=== PATIENT | female | born 1975 | race Caucasian/White ===

== ENCOUNTER → 2018-02-11 10:13 | Outpatient (CLI) | payer OTHER, SELFPAY ==
--- NOTE | 2018-02-11 10:15 | MM_ITS ---
MM Dig screening mamm BI w/CAD CAD Screening COMPARISON: None, this is baseline INDICATION: There is no personal or family history of breast cancer TECHNIQUE: Standard CC and MLO images were obtained. R2 CAD reviewed. FINDINGS: Moderate diffuse fiber glandular densities are seen in the central portions of both breasts. There are several benign-appearing microcalcifications inner quadrant right breast. There is no suspicious lesion and there are no suspicious microcalcifications. IMPRESSION: Fibrofatty parenchyma no suspicious lesion seen BI-RADS Category: 2 Benign Finding(s) RECOMMENDED FOLLOW-UP: 1YR - 1 YEAR FOLLOW-UP (A letter has been sent to the patient regarding results of the study.)
== END ==
PROVIDERS: Family Provider Internal Medicine Adolescent Medicine; PCP Internal Medicine Adolescent Medicine; Visit Provider Nurse Practitioner Obstetrics & Gynecology
DX: Z12.31 Encounter for screening mammogram for malignant neoplasm of breast (principal)
CPT/HCPCS: 77067

== ENCOUNTER → 2019-07-14 10:14 | Outpatient (CLI) | payer OTHER, SELFPAY ==
--- NOTE | 2019-07-14 10:15 | MM_ITS ---
PROCEDURE: MM DIG SCREENING MAMM BI W/CAD CLINICAL INDICATION: Routine Mammgram Screening There is a history of breast cancer in patient's mother diagnosed after menopause. COMPARISON: [facility] MM Dig screening mamm BI w/CAD from 02/11/2018 TECHNIQUE: Standard CC and MLO images were obtained. R2 CAD reviewed. FINDINGS: There is a diffusely dense and heterogenic parenchymal pattern somewhat lessening the sensitivity of mammography. There is a stable collection of benign-appearing microcalcifications inner quadrant right breast. There is no new or suspicious lesion in either breast and no suspicious microcalcifications. IMPRESSION: Moderately dense parenchymal pattern with no suspicious lesions seen BI-RAD Category: 2 Benign Finding(s) FOLLOW-UP: 1YR 1 Year Follow-up (A letter has been sent to the patient regarding results of the study.) Dictated by: Dr. Tom Godoy MD 07/16/2019 14:[address] Tom Godoy MD in [place] 07/16/2019 14:29
== END ==
PROVIDERS: PCP Internal Medicine Adolescent Medicine; Visit Provider Nurse Practitioner Obstetrics & Gynecology
DX: Z12.31 Encounter for screening mammogram for malignant neoplasm of breast (principal)
CPT/HCPCS: 77067

== ENCOUNTER → 2020-07-21 12:45 | Outpatient (CLI) | payer OTHER, SELFPAY ==
--- NOTE | 2020-07-21 12:45 | MM_ITS ---
PROCEDURE: MM DIG SCREENING MAMM BI W/CAD Digital Breast Tomosynthesis Included CLINICAL INDICATION: screening xmg COMPARISON: MG [facility] MM Dig screening mamm BI w/CAD from 02/11/2018 MG MM DIG SCREENING MAMM BI W/CAD from 07/14/2019 TECHNIQUE: Standard CC and MLO images and 3D Tomosynthesis was obtained. R2 CAD reviewed. FINDINGS: There is a diffusely dense and somewhat heterogenic parenchymal pattern. There is a collection of microcalcifications inner quadrant right breast at approximately the 3 o'clock position many of which have been seen on the previous 2 mammograms but there appears to be a slight increase in number of the microcalcifications on the current study. They have somewhat of indeterminate appearance but recommend the patient return for spot compression magnification views of the area circled study and in addition ultrasound should be performed as well. IMPRESSION: Moderately dense parenchymal pattern with possible change in microcalcifications right breast BI-RAD Category: 0 Need Additional Imaging Evaluation FOLLOW-UP: IMM Immediate Follow-up Recommended (A letter has been sent to the patient regarding results of the study.) Dictated by: Dr. Tom Godoy MD 07/28/2020 18:37 Dr. Tom Godoy MD in [place] 07/28/2020 18:37
== END ==
PROVIDERS: PCP Internal Medicine Adolescent Medicine; Visit Provider Nurse Practitioner Obstetrics & Gynecology
DX: Z12.31 Encounter for screening mammogram for malignant neoplasm of breast (principal)
CPT/HCPCS: 77063; 77067

== ENCOUNTER → 2020-08-16 14:23 | Outpatient (CLI) | payer OTHER, SELFPAY ==
--- NOTE | 2020-08-16 14:23 | MM_ITS ---
PROCEDURE: MM DIG MAMM DX UNILAT RT CAD Digital Breast Tomosynthesis Included CLINICAL INDICATION: abnormal xmg COMPARISON: MG [facility] MM Dig screening mamm BI w/CAD from 02/11/2018 MG MM DIG SCREENING MAMM BI W/CAD from 07/14/2019 MG MM DIG SCREENING MAMM BI W/CAD from 07/21/2020 US US BREAST RT COMPLETE from 08/16/2020 TECHNIQUE: Standard CC and MLO images and 3D Tomosynthesis was obtained. R2 CAD reviewed. FINDINGS: Significant a cardenas views better demonstrate a collection of somewhat amorphous appearing microcalcifications just deep to and slightly medial to the nipple with an associated irregular density. Ultrasound performed the same date showed a couple small cyst cystic structures at this location. IMPRESSION: Amorphous collection of microcalcifications with associated irregular density and even though the ultrasound study show no suspicious findings I believe biopsy is indicated. BI-RAD Category: 4 Suspicious Abnormality - Biopsy Considered FOLLOW-UP: BIO Biopsy Recommended (A letter has been sent to the patient regarding results of the study.) Dictated by: Dr. Tom Godoy MD 08/21/2020 19:37 Dr. Tom Godoy MD in [place] 08/21/2020 19:37
--- NOTE | 2020-08-16 14:23 | US_ITS ---
PROCEDURE: US BREAST RT COMPLETE CLINICAL INDICATION: abnormal xmg COMPARISON: No exams were available for comparison FINDINGS: There is a tiny benign-appearing cystic lesion at the 1 o'clock position near the nipple measuring 0.5 cm in length. There is a complex cystic structure with internal septations versus a collection of small cysts at the to 3 o'clock position near the nipple. There is no suspicious solid lesion. There are a couple of normal appearing nodes in the axilla. IMPRESSION: No definite suspicious findings on the ultrasound exam in the area of clinical interest but in view of the findings on the problem solving spot compression magnification views biopsy is recommended as described in the mammogram report Dictated by: Dr. Tom Godoy MD 08/21/2020 19:42 Dr. Tom Goody MD in [place] 08/21/2020 19:42
== END ==
PROVIDERS: PCP Internal Medicine Adolescent Medicine; Visit Provider Nurse Practitioner Obstetrics & Gynecology
DX: R92.8 Other abnormal and inconclusive findings on diagnostic imaging of breast (principal)
CPT/HCPCS: 76641; 77061; 77065; G0279

== ENCOUNTER → 2020-09-07 09:20 | Outpatient (CLI) | payer OTHER, SELFPAY ==
--- NOTE | 2020-09-07 09:21 | MM_ITS ---
PROCEDURE: MM STEREOTACTIC LOC RT CLINICAL INDICATION: Abnormal Mammogram/US Abnormal mammogram with right breast calcifications. TECHNIQUE: Following obtaining informed consent and procedure, the patient placed in the unit and the calcifications in breast of interest were using standard stereotactic technique. Local anesthesia was obtained with 1 percent buffered lidocaine and deeper anesthesia with 1 percent buffered lidocaine mixed with epinephrine. Skin mau was performed and mammotome needle inserted. Multiple mammotome biopsies were obtained. Specimen radiograph demonstrated calcifications of interest. A biopsy clip was then placed. The patient tolerated the procedure well without evidence of immediate complication. Post biopsy mammogram/clip placement right side biopsy clip is in satisfactory position in the medial aspect of the right breast with post biopsy changes with interval removal of the calcifications of interest. Pathology: Ductal carcinoma in situ. Microcalcifications identified. IMPRESSION: 1. Successful stereotactic vacuum-assisted core biopsy of the breast calcifications. 2. Successful placement of a titanium metal MicroMark. 3. Pathology is positive for ductal carcinoma in situ.. 4. No noted complications. SPECIMEN RADIOGRAPH: The mammographically evident calcifications from the prior study are currently evident within the Adisha dish and within the specimens obtained during mammotome procedure. This is considered an adequate specimen and the procedure was terminated. IMPRESSION: Successful removal of described breast calcifications. BREAST right MAMMOGRAM: Compared to the prior study, the previously noted calcification have been removed. A small MicroMark clip was inserted into the region of the calcifications. There is evidence of soft tissue changes in the region of the biopsy was soft tissue gas and edema. 5. Adequate placement of the MicroMark clip postbiopsy. 6. Postbiopsy changes within the right breast. Dictated by: Broderick Carrizales MD 09/16/2020 14:12 Broderick Carrizales MD in [place] 09/16/2020 14:12
== END ==
PROVIDERS: PCP Internal Medicine Adolescent Medicine; Visit Provider Nurse Practitioner Obstetrics & Gynecology
DX: R92.8 Other abnormal and inconclusive findings on diagnostic imaging of breast (principal)
CPT/HCPCS: 19081; 76098; 77065

== ENCOUNTER → 2020-12-29 14:15 | Outpatient (CLI) | payer OTHER, SELFPAY | PROVIDERS: Visit Provider Physician Assistant | DX: N39.0 Urinary tract infection, site not specified (principal) | CPT/HCPCS: 87086 ==

== ENCOUNTER → 2021-03-28 13:53 | Outpatient (CLI) | payer OTHER, SELFPAY | PROVIDERS: Visit Provider Nurse Practitioner Family | DX: N39.0 Urinary tract infection, site not specified (principal) | CPT/HCPCS: 87086; 87088; 87186 ==

== ENCOUNTER → 2021-05-15 14:19 | Outpatient (CLI) | payer OTHER, SELFPAY ==
[2021-05-15 14:25] LABS: Adenovirus F 40/41, stool Not Detected (NotDetected); Astrovirus Not Detected (NotDetected); Campylobacter Not Detected (NotDetected); Clostridium Difficile A/B, PCR Not Detected (NotDetected); Cryptosporidium Not Detected (NotDetected); Cyclospora Cayetanesis Not Detected (NotDetected); Entamoeba histolytica Not Detected (NotDetected); Enteroaggregative E coli Not Detected (NotDetected); Enteropathogenic E coli Not Detected (NotDetected); Enterotoxigenic E coli Not Detected (NotDetected); Giardia lamblia Not Detected (NotDetected); Norovirus Not Detected (NotDetected); Plesimonas Shigalloides, PCR Not Detected (NotDetected); Rotavirus A Not Detected (NotDetected); Salmonella, PCR Not Detected (NotDetected); Sapovirus Not Detected (NotDetected); Shiga-like toxin E coli Not Detected (NotDetected); Shigella Enterovasive E coli Not Detected (NotDetected); Vibrio Cholerae Not Detected (NotDetected); Vibrio, PCR Not Detected (NotDetected); Yersinia Entercolitica, PCR Not Detected (NotDetected)
== END ==
PROVIDERS: Visit Provider Internal Medicine Adolescent Medicine
DX: R19.7 Diarrhea, unspecified (principal)
CPT/HCPCS: 87507

== ENCOUNTER → 2021-05-22 13:22 | Outpatient (CLI) | payer OTHER, SELFPAY ==
[2021-05-22 13:58] LABS: Basophils # 0.1 K/mm3 (0-0.2); Basophils % 0.4 % (0.1-2.0); Eosinophils # 4.6 K/mm3 (0.0-0.4); Eosinophils % 32.5 % (0.1-12.0); Hematocrit 42.9 % (37.0-47.0); Hemoglobin 13.8 g/dL (12.2-16.2); Lymphocytes # 3.2 K/mm3 (0.7-4.5); Lymphocytes % 22.4 % (10-50); Mean Corpuscular HGB Conc 32.2 g/dL (31.8-35.4); Mean Corpuscular Hemoglobin 28.3 pg (27.0-31.2); Monocytes # 0.3 K/mm3 (0.1-1.0); Monocytes % 1.9 % (1.7-9.3); Neutrophils # 6.1 K/mm3 (1.8-7.8); Neutrophils % 42.9 % (37.0-80.0); Platelet Count 327 K/mm3 (142-424); Red Blood Count 4.87 M/mm3 (4.20-5.40); Red Cell Distribution Width 12.8 % (11.5-17.5); White Blood Count 14.2 K/mm3 (4.8-10.8)
[2021-05-22 15:01] LABS: Alanine Aminotransferase 22 U/L (12-78); Albumin Level 4.6 g/dl (3.5-5.0); Albumin/Globulin Ratio 1.7 (1.1-1.8); Alkaline Phosphatase 67 U/L (38-126); Anion Gap 17.1 mEq/L (5-15); Aspartate Amino Transferase 31 U/L (14-36); Bilirubin,Total 0.4 mg/dl (0.2-1.3); Blood Urea Nitrogen 11 mg/dl (7-17); Calcium 9.6 mg/dl (8.4-10.2); Carbon Dioxide 22 mmol/L (22.0-30.0); Chloride 108 mmol/L (98-107); Estimated Glomerular Filt Rate 90 ml/min (>60); GFR (African American) 109 ML/MIN (>60); Globulin 2.7 g/dL (1.3-3.2); Glucose 119 mg/dl (74-100); Lipase 83 U/L (23-300); Potassium 3.1 mmoL/L (3.5-5.1); Sodium 144 mmol/L (136-145); Total Protein,Serum 7.3 g/dl (6.3-8.2)
[2021-05-22 15:07] LABS: C-Reactive Protein 7.3 mg/L (0-4)
[2021-05-24 15:33] LABS: Tissue Transglutaminase IgA Ab <2 U/mL (0-3); Tissue Transglutaminase IgG Ab <2 U/mL (0-5)
[2021-05-24 15:33] LABS: Calprotectin, Fecal 73 ug/g (0-120)
[2021-05-25 16:30] LABS: Lactoferrin, Fecal, Quant. <1.00 ug/mL(g) (0.00-7.24)
== END ==
PROVIDERS: Visit Provider Internal Medicine Adolescent Medicine
DX: R19.7 Diarrhea, unspecified (principal)
CPT/HCPCS: 36415; 80053; 83516; 83630; 83690; 83993; 85025; 86140; 87177

== ENCOUNTER → 2021-05-31 10:08 | Outpatient (CLI) | payer OTHER, SELFPAY ==
--- NOTE | 2021-05-31 10:11 | US_ITS ---
PROCEDURE: US ABDOMEN LIMITED CLINICAL INDICATION: DIARRHEA OF PRESUMED INFECTIOUS ORRGIN COMPARISON: No exams were available for comparison FINDINGS: PANCREAS: The body and head of the pancreas has an unremarkable appearance. The tail the pancreas is not well delineated due to overlying bowel gas. LIVER: No focal liver lesions demonstrated. Homogeneous echogenicity. No intrahepatic biliary ductal dilatation evident. There is appropriate direction of blood flow within a non dilated portal vein RIGHT KIDNEY: Unremarkable. Normal size and echogenicity. No hydronephrosis GALLBLADDER: Gallbladder wall upper limits of normal at 3 mm. No gallstones apparent. No pericholecystic fluid. IMPRESSION: Minimal nonspecific prominence of the gallbladder wall otherwise negative gallbladder ultrasound Dictated by: Broderick Carrizales MD 05/31/2021 11:48 Broderick Carrizales MD in [place] 05/31/2021 11:48
== END ==
PROVIDERS: PCP Physician Assistant; Visit Provider Internal Medicine Adolescent Medicine
DX: R19.7 Diarrhea, unspecified (principal)
CPT/HCPCS: 76705

== ENCOUNTER → 2021-06-21 11:23 | Outpatient (CLI) | payer OTHER, SELFPAY | PROVIDERS: Visit Provider Internal Medicine Gastroenterology | DX: Z01.812 Encounter for preprocedural laboratory examination (principal); Z20.822 Contact with and (suspected) exposure to COVID-19; Z12.11 Encounter for screening for malignant neoplasm of colon | CPT/HCPCS: U0003 ==

== ENCOUNTER 2021-06-23 08:23 | Day surgery (SDC) | payer OTHER, SELFPAY ==
[2021-06-15 15:32] VITALS: BMI 25.0
[2021-06-23] VITALS (8 sets, daily range): BP systolic 84–133; BP diastolic 43–89; PULSE 63–79; RESP 16–18; TEMP 36.1–37.7; O2SAT 96–100
--- NOTE | 2021-06-23 09:03 | HMH.ANESCL ---
[facility] Anesthesia Checklist - Patient Identification Patient Identification: Arm Band - Structural Data Admitted From: Home Planned Operative Procedure/s: Colonoscopy Consent for Planned Operative Procedure(s) Verified: Yes - NPO Status Verified Time NPO: 00:00 - Additional verifications Anesthesia Reactions: No Hx Blood Transfusions: No Blood Transfusion Reaction: No - Airway Assessment C-Spine Mobility Assessed: Yes TMJ Mobility Assessed: Yes Dentition: Good Dentition - Neurological Assessment Level of Consciousness: Awake Hx Seizures: No Numbness or tingling in extremities: No - Anesthesia Plan Anesthesia Risk discussed: Yes Anesthesia Plan: Verified ASA Class: II Anesthesia Type: MAC [facility] History I have reviewed the patient's past medical history: Yes Medical History: Reports:: Cancer (right breast), Hyperlipidemia, Migraine, Urinary Tract Infection Denies:: Anxiety, Depression, Diabetes Mellitus Type 1, Diabetes Mellitus Type 2, Hypertension, Internal Pacemaker, MRSA, Seizures *Have you ever received a pneumonia vaccine?: No *Have you received a flu vaccine this season?: Yes Other Medical History: Reports: Hypothyroidism. Denies: Blood Transfusion Reaction Anesthesia experience/problems:: None Laterality Cases: Right: Lumpectomy, Bilateral: Tonsillectomy Other Surgeries: Yes: No Previous Surgery, . No: Pacemaker Amputation: No Fractures: No - *Social History Last grade of school completed: Some college Smoking Status: Never smoker Alcohol Intake: never Alcohol Intake Frequency:: holidays/special occasions only Substance Use Type: denies use *Occupational Status:: employed Housing: house Household Members: spouse *Travel in the last 8 weeks: None - Psychiatric History Pschychiatric History:: Denies:: Anxiety, Depression Family Hx:: Cancer, Diabetes, Heart Attack, Thyroid Disorder, Hypertension, Hyperlipidemia
[2021-06-23 09:15] LABS: HCG Qualitative, Serum Negative (Negative)
--- NOTE | 2021-06-23 10:03 | HMH.PROC ---
[facility] Procedure Note Procedure Note:: Colonoscopy Procedure Report: Colonoscopy Endoscopist: Hesham Engel II, MD Referring physician: Norris Jimenez MD Date of Procedure: June 23, 2021 Equipment: Olympus 190 variable stiffness pediatric colonoscope Sedation: MAC sedation Indication: Mrs. Smith is a 45-year-old female with diarrhea for approximately 4 to 6 weeks. She had some marked gassiness and postmeal bloating. She had postprandial epigastric and left lower quadrant abdominal discomfort. She had lost 9 to 10 pounds. Her bowel movements were watery rather than loose. She was taking Digestive Advantage probiotic. All of her labs were normal. Her fecal calprotectin and lactoferrin were normal. She had normal celiac serologies. She had been on a moderate amount of yogurt. She had seen me in the office on June 01 and I had recommended stopping the probiotic and yogurt. I also recommend stopping nitrofurantoin. She initiated dietary measures. She did not obtain Xifaxan (cost prohibitive) and did not do CAT scan because she markedly improved. She has had no diarrhea for more than a week now. Procedure: Prior to the procedure, a history and physical exam was performed, and patient's medications and allergies were reviewed. The risks, benefits and alternatives of the sedation and procedure were discussed with the patient. All questions were answered and informed consent was obtained. The patient was brought to the procedure room. Patient identification and proposed procedure were verified by the physician and the nurse. The patient was placed in a left lateral decubitus position and the scope was passed under direct vision. Throughout the procedure, the patient's blood pressure, pulse, and oxygen saturations were monitored continuously. The colonoscopy was accomplished without difficulty. The patient tolerated the procedure well. Findings: On digital rectal examination there was normal rectal tone. There were no external hemorrhoids. The colonoscope was introduced through the anal canal to the rectum and advanced to the cecum. The ileocecal valve and appendiceal orifice were identified. The scope was advanced a short distance into the ileum which appeared grossly normal. The scope was then withdrawn into the colon. The cecum, ascending, transverse, descending, sigmoid and rectum were grossly normal. There were no mucosal abnormalities identified. Upon retroflexion within the rectum there were grade 1 internal hemorrhoids.The preparation was excellent throughout with [place] Preparation Score of 9. The cecal time was 12 minutes. Impression: 1. Normal colonoscopy with intubation of the terminal ileum Plan: The patient will not require surveillance colonoscopy again for 10 years. The patient has had complete resolution of her diarrhea and digestive difficulties.
== END 2021-06-23 11:10 | disposition home or self-care (01) ==
LOC: OUTP 08:25
PROVIDERS: PCP Internal Medicine Adolescent Medicine; Visit Provider Internal Medicine Gastroenterology
PROC: 0DJD8ZZ Inspection of Lower Intestinal Tract, Via Natural or Artificial Opening Endoscopic (ICD-10-PCS; CPT 45378; principal; 2021-06-23 09:30)
DX: R19.7 Diarrhea, unspecified (principal); R14.0 Abdominal distension (gaseous); K64.0 First degree hemorrhoids; R10.32 Left lower quadrant pain; E78.5 Hyperlipidemia, unspecified; G43.909 Migraine, unspecified, not intractable, without status migrainosus; E03.9 Hypothyroidism, unspecified; Z85.3 Personal history of malignant neoplasm of breast; Z87.440 Personal history of urinary (tract) infections
CPT/HCPCS: 45378; 84703

== ENCOUNTER → 2021-07-06 21:16 | Outpatient (CLI) | payer OTHER, SELFPAY | PROVIDERS: Visit Provider Physician Assistant | DX: N39.0 Urinary tract infection, site not specified (principal); E03.9 Hypothyroidism, unspecified; E78.1 Pure hyperglyceridemia | CPT/HCPCS: 87086 ==

== ENCOUNTER → 2021-07-10 12:35 | Outpatient (CLI) | payer OTHER, SELFPAY ==
[2021-07-10 13:11] LABS: Basophils % 0.6 % (0.1-2.0); Eosinophils # 0.1 K/mm3 (0.0-0.4); Eosinophils % 2.1 % (0.1-12.0); Hematocrit 38.2 % (37.0-47.0); Hemoglobin 12.2 g/dL (12.2-16.2); Lymphocytes # 2.2 K/mm3 (0.7-4.5); Lymphocytes % 31.7 % (10-50); Mean Corpuscular HGB Conc 31.9 g/dL (31.8-35.4); Mean Corpuscular Hemoglobin 29.3 pg (27.0-31.2); Mean Corpuscular Volume 91.9 fl (81-99); Mean Platelet Volume 7.6 fl (7.4-10.4); Monocytes # 0.3 K/mm3 (0.1-1.0); Neutrophils # 4.3 K/mm3 (1.8-7.8); Neutrophils % 61.6 % (37.0-80.0); Platelet Count 312 K/mm3 (142-424); Red Blood Count 4.16 M/mm3 (4.20-5.40); Red Cell Distribution Width 12.9 % (11.5-17.5); White Blood Count 6.9 K/mm3 (4.8-10.8)
[2021-07-10 13:28] LABS: Alanine Aminotransferase 15 U/L (12-78); Albumin/Globulin Ratio 1.4 (1.1-1.8); Alkaline Phosphatase 57 U/L (38-126); Anion Gap 16.3 mEq/L (5-15); Aspartate Amino Transferase 22 U/L (14-36); Bilirubin,Total 0.3 mg/dl (0.2-1.3); Blood Urea Nitrogen 10 mg/dl (7-17); Calcium 9.2 mg/dl (8.4-10.2); Carbon Dioxide 22 mmol/L (22.0-30.0); Chloride 106 mmol/L (98-107); Cholesterol 203 mg/dl (140-200); Estimated Glomerular Filt Rate 108 ml/min (>60); GFR (African American) 131 ML/MIN (>60); Globulin 2.8 g/dL (1.3-3.2); Glucose 82 mg/dl (74-100); HDL Cholesterol 51 mg/dl (40-60); Potassium 4.3 mmoL/L (3.5-5.1); Sodium 140 mmol/L (136-145); Total Protein,Serum 6.8 g/dl (6.3-8.2); Triglycerides 338 mg/dl (30-150); VLDL Cholesterol 68 mg/dL (0-40)
[2021-07-10 13:40] LABS: Direct LDL Cholesterol 108.22 mg/dL (100-129)
[2021-07-10 13:46] LABS: 25-OH Vitamin D, Total 34.6 ng/mL (30-100); T4 (Thyroxine) 15.9 ug/dl (5.53-11.0)
[2021-07-10 13:59] LABS: Thyroid Stimulating Hormone 1.17 uIU/mL (0.465-4.68)
[2021-07-10 22:39] LABS: Hemoglobin A1C 5.6 % (4.0-6.0)
== END ==
PROVIDERS: Visit Provider Physician Assistant
DX: E03.9 Hypothyroidism, unspecified (principal); E78.1 Pure hyperglyceridemia
CPT/HCPCS: 36415; 80053; 80061; 82306; 83036; 84436; 84443; 85025

== ENCOUNTER → 2021-08-10 12:50 | Outpatient (CLI) | payer OTHER, SELFPAY ==
--- NOTE | 2021-08-10 12:50 | US_ITS ---
PROCEDURE: US THYROID CLINICAL INDICATION: hypothyroidism COMPARISON: No exams were available for comparison FINDINGS: Right lobe: 3.3 x 1.1 x 1.4 cm. No discrete nodule. Left lobe: 3.2 x 1.1 x 1.4 cm. No discrete nodule Isthmus: Unremarkable Additional findings: There is some minimal heterogeneous echogenicity of the thyroid gland nonspecific. IMPRESSION: No discrete nodule. Nonspecific mild heterogeneous echogenicity in a normal-sized gland. Dictated by: Broderick Carrizales MD 08/10/2021 15:57 Broderick Carrizales MD in [place] 08/10/2021 15:57
== END ==
PROVIDERS: PCP Physician Assistant; Visit Provider Physician Assistant
DX: E03.9 Hypothyroidism, unspecified (principal)
CPT/HCPCS: 76536

== ENCOUNTER → 2022-08-24 09:42 | Outpatient (CLI) | payer OTHER, SELFPAY ==
[2022-08-24 09:50] LABS: MANUAL DIFFERENTIAL MANUAL DIFFERENTIAL (MANUAL DIFF)
[2022-08-24 10:23] LABS: Basophils # 0.1 K/mm3 (0-0.2); Basophils % 1.3 % (0.1-2.0); Eosinophils # 0.6 K/mm3 (0.0-0.4); Eosinophils % 9.6 % (0.1-12.0); Hematocrit 39.7 % (37.0-47.0); Hemoglobin 12.8 g/dL (12.2-16.2); Lymphocytes % 34.2 % (10-50); Mean Corpuscular HGB Conc 32.3 g/dL (31.8-35.4); Mean Corpuscular Hemoglobin 28.9 pg (27.0-31.2); Mean Corpuscular Volume 89.5 fl (81-99); Monocytes # 0.3 K/mm3 (0.1-1.0); Monocytes % 4.4 % (1.7-9.3); Neutrophils # 2.9 K/mm3 (1.8-7.8); Neutrophils % 50.5 % (37.0-80.0); Platelet Count 312 K/mm3 (142-424); Red Blood Count 4.44 M/mm3 (4.20-5.40); Red Cell Distribution Width 13.7 % (11.5-17.5); White Blood Count 5.8 K/mm3 (4.8-10.8)
[2022-08-24 10:53] LABS: Alanine Aminotransferase 19 U/L (12-78); Albumin/Globulin Ratio 1.5 (1.1-1.8); Alkaline Phosphatase 63 U/L (38-126); Anion Gap 16.5 mEq/L (5-15); Aspartate Amino Transferase 24 U/L (14-36); Bilirubin,Total 0.2 mg/dl (0.2-1.3); Blood Urea Nitrogen 10 mg/dl (7-17); Calcium 9.3 mg/dl (8.4-10.2); Carbon Dioxide 22 mmol/L (22.0-30.0); Chloride 106 mmol/L (98-107); Chol/HDL Ratio 3.9 (1-3.5); Cholesterol 180 mg/dl (140-200); Estimated Glomerular Filt Rate 108 ml/min (>60); GFR (African American) 130 ML/MIN (>60); Globulin 2.6 g/dL (1.3-3.2); Glucose 100 mg/dl (74-100); HDL Cholesterol 46 mg/dl (40-60); Potassium 4.5 mmoL/L (3.5-5.1); Sodium 140 mmol/L (136-145); Total Protein,Serum 6.6 g/dl (6.3-8.2); Triglycerides 201 mg/dl (30-150); VLDL Cholesterol 40 mg/dL (0-40)
[2022-08-24 11:04] LABS: Direct LDL Cholesterol 104.16 mg/dL (100-129)
[2022-08-24 11:11] LABS: Eosinophils % 5 % (0-3); Lymphocytes % 36 % (10-50); Monocytes % 5 % (2-9); Neutrophils % 54 % (42-76); Platelet Estimate Normal; RBC Morphology Normal; Total Cells Counted 100
[2022-08-24 11:26] LABS: Thyroid Stimulating Hormone 2.31 uIU/mL (0.465-4.68)
== END ==
PROVIDERS: PCP Nurse Practitioner Family; Visit Provider Nurse Practitioner Family
DX: E03.9 Hypothyroidism, unspecified (principal); E78.1 Pure hyperglyceridemia
CPT/HCPCS: 36415; 80053; 80061; 84443; 85007; 85014; 85018; 85048; 85049

== ENCOUNTER → 2023-01-30 18:56 | Outpatient (CLI) | payer OTHER, SELFPAY ==
[2023-01-31 09:07] LABS: Microscopic, Urine URINE MICROSCOPIC (MICROSCOPIC)
[2023-01-31 09:34] LABS: Bilirubin,Urine Negative (Negative); Blood, Urine TRACE-I (Negative); Glucose,Urine (UA) Negative (Negative); Ketones,Urine Negative (Negative); Leukocyte Esterase,Urine 1+ (Negative); Nitrate,Urine Negative (Negative); PH,Urine 5.5 (5.0-8.5); Protein,Urine Negative (Negative); Specific Gravity, Urine >= 1.030 (1.005-1.030); Urobilinogen,Urine 0.2 EU/dl (0.2)
[2023-01-31 10:04] LABS: Appearance,Urine Turbid (Clear); Color,Urine Orange (Yellow)
[2023-01-31 10:05] LABS: WBC,Urine Occasional #/hpf (0-3)
[2023-01-31 10:06] LABS: Bacteria,Urine Trace /lpf; Other Crystals,Urine 4+ /lpf; Squamous Epithelial Cell,Urine Occasional #/hpf (0-5)
== END ==
PROVIDERS: PCP Nurse Practitioner Family; Visit Provider Nurse Practitioner Family
DX: N39.0 Urinary tract infection, site not specified (principal); B96.1 Klebsiella pneumoniae [K. pneumoniae] as the cause of diseases classified elsewhere
CPT/HCPCS: 81001; 87086; 87088; 87186

== ENCOUNTER → 2023-06-28 12:00 | Outpatient (CLI) | payer OTHER, SELFPAY | PROVIDERS: PCP Family Medicine; Visit Provider Nurse Practitioner Family | DX: N39.0 Urinary tract infection, site not specified (principal); B96.29 Other Escherichia coli [E. coli] as the cause of diseases classified elsewhere | CPT/HCPCS: 87086; 87088; 87186 ==

== ENCOUNTER → 2023-10-03 16:41 | Outpatient (CLI) | payer OTHER, SELFPAY ==
[2023-10-03 16:44] LABS: Alanine Aminotransferase 23 U/L (12-78); Albumin Level 4.3 g/dl (3.5-5.0); Albumin/Globulin Ratio 1.4 (1.1-1.8); Alkaline Phosphatase 60 U/L (38-126); Anion Gap 14.3 mEq/L (5-15); Aspartate Amino Transferase 36 U/L (14-36); Bilirubin,Total 0.4 mg/dl (0.2-1.3); Blood Urea Nitrogen 11 mg/dl (7-17); Carbon Dioxide 20 mmol/L (22.0-30.0); Chloride 107 mmol/L (98-107); Chol/HDL Ratio 3.9 (1-3.5); Cholesterol 217 mg/dl (140-200); Estimated Glomerular Filt Rate 107 ml/min (>60); GFR (African American) 130 ML/MIN (>60); Globulin 3.1 g/dL (1.3-3.2); Glucose 100 mg/dl (74-100); HDL Cholesterol 55 mg/dl (40-60); Potassium 4.3 mmoL/L (3.5-5.1); Sodium 137 mmol/L (136-145); Total Protein,Serum 7.4 g/dl (6.3-8.2); Triglycerides 201 mg/dl (30-150); VLDL Cholesterol 40 mg/dL (0-40)
[2023-10-03 16:47] LABS: Basophils % 0.3 % (0.1-2.0); Eosinophils # 0.2 K/mm3 (0.0-0.4); Eosinophils % 1.5 % (0.1-12.0); Hematocrit 41.4 % (37.0-47.0); Hemoglobin 13.6 g/dL (12.2-16.2); Lymphocytes # 1.9 K/mm3 (0.7-4.5); Lymphocytes % 18.3 % (10-50); Mean Corpuscular Hemoglobin 30.1 pg (27.0-31.2); Mean Corpuscular Volume 91.2 fl (81-99); Mean Platelet Volume 8.7 fl (7.4-10.4); Monocytes # 0.5 K/mm3 (0.1-1.0); Monocytes % 4.6 % (1.7-9.3); Neutrophils % 75.3 % (37.0-80.0); Platelet Count 286 K/mm3 (142-424); Red Blood Count 4.54 M/mm3 (4.20-5.40); Red Cell Distribution Width 13.7 % (11.5-17.5); White Blood Count 10.6 K/mm3 (4.8-10.8)
[2023-10-03 16:55] LABS: Direct LDL Cholesterol 117.96 mg/dL (100-129)
[2023-10-03 17:14] LABS: Thyroid Stimulating Hormone 1.07 uIU/mL (0.465-4.68)
[2023-10-03 17:48] LABS: Hemoglobin A1C 5.3 % (4.0-6.0)
== END ==
PROVIDERS: PCP Family Medicine; Visit Provider Nurse Practitioner Family
DX: E03.9 Hypothyroidism, unspecified (principal); R05.9 Cough, unspecified; Z79.899 Other long term (current) drug therapy
CPT/HCPCS: 80053; 80061; 83036; 84443; 85025; 87635

== ENCOUNTER → 2023-10-09 16:38 | Outpatient (CLI) | payer OTHER, SELFPAY | PROVIDERS: PCP Family Medicine; Visit Provider Family Medicine | DX: R30.0 Dysuria (principal); B96.29 Other Escherichia coli [E. coli] as the cause of diseases classified elsewhere | CPT/HCPCS: 87086 ==

== ENCOUNTER 2024-01-03 18:52 | Outpatient (CLI) | payer BC, SELFPAY | END 2024-01-03 23:59 | LOC: LAB.DROPOF 18:53 | PROVIDERS: PCP Family Medicine; Visit Provider Family Medicine | DX: N39.0 Urinary tract infection, site not specified (principal); B96.1 Klebsiella pneumoniae [K. pneumoniae] as the cause of diseases classified elsewhere | CPT/HCPCS: 87086 ==

== ENCOUNTER 2024-02-10 11:40 | Outpatient (CLI) | payer BC, SELFPAY ==
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
== END 2024-02-10 23:59 | disposition home or self-care (01) ==
LOC: RAD 11:41
PROVIDERS: PCP Family Medicine; Visit Provider Family Medicine
DX: M54.2 Cervicalgia (principal)
CPT/HCPCS: 72040

== ENCOUNTER 2024-03-10 15:00 | Outpatient (RCR) | payer BC, SELFPAY ==
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
== END 2024-04-01 15:55 | disposition home or self-care (01) ==
LOC: PT 15:00
PROVIDERS: Visit Provider Family Medicine
DX: M54.2 Cervicalgia (principal)
CPT/HCPCS: 97010; 97012; 97014; 97110; 97140; 97163; 97530; G0283

== ENCOUNTER 2024-03-30 08:11 | Outpatient (CLI) | payer BC, SELFPAY ==
--- NOTE | 2024-03-30 08:12 | MR_ITS ---
FINAL REPORT CLINICAL HISTORY: neck pain chronic pinched nerve COMPARISON: None FINDINGS: Multiplanar MR imaging of the cervical spine was performed without contrast. On the sagittal T2-weighted images, disc degeneration is seen throughout. There is no evidence of fracture. The vertebral alignment is normal. The cervical spinal cord has an unremarkable appearance without evidence of mass, edema or syrinx. No significant canal stenosis is identified. The cervicomedullary junction is normal. C2-3: There is no significant canal stenosis or neural foraminal narrowing. C3-4: There are uncovertebral osteophytes present with mild left neural foraminal narrowing. C4-5: There are uncovertebral osteophytes present with mild right neural foraminal narrowing. C5-6: Disc osteophyte complex is present with a left paracentral disc protrusion indenting the thecal sac, producing mild canal stenosis with an AP canal diameter of 7 mm, and left C6 nerve root impingement. There is mild right and moderate left neural foraminal narrowing. C6-7: An annular bulge is present with a small right paracentral disc protrusion and mild left neural foraminal narrowing. C7-T1: There is no significant canal stenosis or neural foraminal narrowing. IMPRESSION: Multilevel cervical degenerative changes present, most severe at the C5-6 level as described. Reviewed, Interpreted and Dictated by Weston Rosen III, MD Transcribed by [facility] Authenticated and [facility]
== END 2024-03-30 23:59 | disposition home or self-care (01) ==
LOC: RAD 08:12
PROVIDERS: PCP Family Medicine; Visit Provider Family Medicine
DX: M54.2 Cervicalgia (principal)
CPT/HCPCS: 72141

== ENCOUNTER 2024-04-21 18:00 | Outpatient (CLI) | payer BC, SELFPAY | END 2024-04-21 23:59 | disposition home or self-care (01) | LOC: LAB.DROPOF 04-22 08:04 | PROVIDERS: PCP Nurse Practitioner Family; Visit Provider Nurse Practitioner Family | DX: N39.0 Urinary tract infection, site not specified (principal) | CPT/HCPCS: 87086; 87088; 87186 ==

== ENCOUNTER 2024-08-04 11:31 | Outpatient (CLI) | payer BC, SELFPAY | END 2024-08-04 23:59 | disposition home or self-care (01) | LOC: LAB.DROPOF 08-05 07:58 | PROVIDERS: PCP Family Medicine; Visit Provider Family Medicine | DX: N39.0 Urinary tract infection, site not specified (principal) | CPT/HCPCS: 87086 ==

== ENCOUNTER 2024-10-12 09:44 | Outpatient (CLI) | payer BC, SELFPAY ==
--- NOTE | 2024-10-12 09:47 | XR_ITS ---
FINAL REPORT CLINICAL HISTORY: left hand/ thumb pain FINDINGS: LEFT HAND Three views demonstrate no acute fracture or dislocation. The visualized joint spaces are normally aligned. The soft tissues are unremarkable. IMPRESSION: No acute process. Reviewed, Interpreted and Dictated by Milla Otto MD Transcribed by Veronica Varghese Authenticated and [facility]
== END 2024-10-12 23:59 | disposition home or self-care (01) ==
PROVIDERS: PCP Family Medicine; Visit Provider Physician Assistant
DX: M79.642 Pain in left hand (principal)
CPT/HCPCS: 73130

== ENCOUNTER 2024-10-27 06:05 | Emergency (ER) | payer BC, SELFPAY ==
[2024-10-27] VITALS (7 sets, daily range): BP systolic 114–141; BP diastolic 63–83; PULSE 92–114; RESP 16–20; TEMP 37.6–38.2; O2SAT 96–97; BMI 27.8
--- NOTE | 2024-10-27 06:14 | PC.NURSE ---
Pt awake and alert Skin pink warm and dry Resp full and easy Speech clear and appropriate. Pt states she has been taking Tylenol and Riaz Cautioned to watch how much tylenol she is taking in a 24 hour period.
[2024-10-27] MEDS: ONDANSETRON 4MG ODT 4 MG SL (06:21)
--- NOTE | 2024-10-27 06:22 | ED_ITS ---
Discharge Plan Disposition Patient Disposition: Home, Self-Care Prescriptions Prescriptions: No Action ubrogepant 100 mg tablet 100 mg PO NEEDED PRN (Reason: migraines) Qty: 90 0RF Rx Instructions: Take 1 tab PO @ onset of symptoms. May repeat after 2 hrs if symptoms persist. Max 2/24 hrs. Max 4/week tamoxifen 20 mg tablet 20 mg PO DAILY ibuprofen 800 mg tablet 800 mg PO Q8H PRN (Reason: pain) 30 Days Qty: 60 2RF famotidine 20 mg tablet 20 mg PO DAILY PRN (Reason: gerd) Qty: 60 1RF nadolol 20 mg tablet 20 mg PO DAILY 30 Days Qty: 90 0RF levothyroxine 88 mcg tablet See Rx Instructions .ROUTE .COMPLEX Qty: 90 0RF Dose Instruction: TAKE 1 TABLET BY MOUTH ONCE DAILY Rx Instructions: TAKE 1 TABLET BY MOUTH ONCE DAILY Referrals Follow up/Referrals: Ac Oliva MD [Primary Care Provider] - See instructions Activity Restrictions/Add. Instructions Additional Instructions/Restrictions: At this time it was felt you are safe to be discharged home. If new or worsening symptoms please do not hesitate to return the emergency department. Please take Tylenol 1000 mg and ibuprofen 600 mg every 6 hours at the same time with a little bit of food. For hydration please mix 50% Powerade and 50% water or just water alone. Clinical Impressions Clinical Impression: COVID-19 Print Language Print Language: Finnish Discharge ED Provider: Andrew Pearce Adult HPI <Andrew Pearce MD - Last Filed: 10/27/24 06:51> General Chief complaint: Fever Stated complaint: fever, cough, sore throat, muscle aches Time Seen by Provider: 10/27/24 06:11 Mode of Arrival: Ambulatory Source of Information: Patient Limitations: No Limitations Description of Symptoms (Recalled from ER Triage Doc. by RN): Pt has had fever since yesterday. 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 Patient reports on and off since August she has had different upper respiratory illnesses. She states it seems like she gets over 1 and then gets another. She states her symptoms of this illness started yesterday. She states she has been having side effects from her tamoxifen of diffuse bodyaches so they have been decreasing her dose. She has no numbness, tingling, weakness, she does report increased fatigue. She has had low-grade fevers at home. She also had urinary urgency this morning but no dysuria or hematuria. ROS otherwise negative Related Data Home Medications ?Medication ?Instructions ?Recorded ?Confirmed tamoxifen 20 mg tablet 20 mg PO DAILY 08/04/24 10/12/24 Previous Rx's ?Medication ?Instructions ?Recorded ubrogepant 100 mg tablet 100 mg PO NEEDED PRN migraines 06/28/23 #90 tabs ibuprofen 800 mg tablet 800 mg PO Q8H PRN pain 30 days #60 10/24/23 tabs famotidine 20 mg tablet 20 mg PO DAILY PRN gerd #60 tabs 07/02/24 nadolol 20 mg tablet 20 mg PO DAILY 30 days #90 tabs 07/28/24 levothyroxine 88 mcg tablet See Rx Instructions .Route 09/16/24 .COMPLEX #90 tabs Allergies Allergy/AdvReac Type Severity Reaction Status Date / Time Sulfa (Sulfonamide Allergy Mild Verified 10/12/24 10:17 Antibiotics) atorvastatin (From Lipitor) AdvReac Mild Myalgias Verified 10/12/24 10:17 propranolol AdvReac Mild Nightmares Verified 10/12/24 10:17 PFSH <Andrew Pearce MD - Last Filed: 10/27/24 06:51> PFS Disclaimer: The information contained in this section may have been updated after the patient was seen, as this information can be updated by other users. Medical History High triglycerides High triglycerides Gastroesophageal reflux disease Hypothyroidism Migraine headache Recurrent UTI Surgical History H/O lumpectomy Family History Mother Cancer Diabetes Hypertension Father Coronary artery disease Grandfather Coronary artery disease Social History Smoking Status: Never smoker alcohol intake: never substance use type: denies use current occupational status: employed Travel in the last 8 weeks: None household members: spouse housing: house current occupation: [employer]ator current occupational exposures/hazards: No caffeine: Yes Have you lived/traveled outside US in past 30 days?: No Contact w/someone who lives/traveled outside US past 30 days?: No Exposure to someone with infectious disease in past 14 days?: Yes Do you have a fever (greater than 100.4 F or 38 C)?: Yes Have you tested positive for COVID-19: No Exposed to someone with COVID-19 in past 14 days?: No Do you have a sore throat?: Yes Do you have a cough?: Yes Do you have any weakness?: No Do you have any diarrhea?: No Are you experiencing any unusual bleeding?: No Do you have any muscle aches/pain?: Yes Do you have any abdominal pain?: No Are you experiencing loss of taste or smell?: No Other Medical History Have you received the Flu Vaccine for this season: Yes Have you received the Pneumonia Vaccine: No <Andrew Pearce MD - Last Filed: 10/27/24 06:51> ROS Obtained: Yes Systems reviewed as appropriate & no additional complaints except as documented Per HPI Physical Exam <Andrew Pearce MD - Last Filed: 10/27/24 06:51> General General appearance: alert and in no apparent distress Head Head exam: atraumatic and normocephalic Eye Eye exam: Present PERRL and EOMI ENT ENT exam: Present mucous membranes moist Neck Neck exam: Present normal inspection and full ROM Chest Chest inspection: Present symmetric chest wall rise; Absent tenderness Respiratory Respiratory exam: Present normal lung sounds bilaterally; Absent respiratory distress, wheezes or stridor Cardiovascular Cardiovascular exam: Present normal rhythm and tachycardia Abdominal Exam Abdominal exam: Present soft; Absent distention, tenderness, guarding or rebound Extremities Exam Extremities exam: Present full ROM and other (Patient has diffuse muscle tenderness throughout, very mild, no findings of trauma, patient does not have any calf tenderness or swelling, no erythema.); Absent edema or calf tenderness Neurological Exam Neurological exam: Present alert and oriented X3; Absent motor sensory deficit Psychiatric Psychiatric exam: Present normal affect and normal mood Skin Skin exam: Present warm and dry Medical Decision Making <Andrew Pearce MD - Last Filed: 10/27/24 06:51> Medical Records Medical records reviewed: Yes I reviewed the patient's medical records. Screening: Per USPSTF and CDC recommendations, given the prevalence of disease in our region, it is our hospital?s policy to screen for HIV and viral Hepatitis for all patients aged 18 and over and those with ongoing risk factors. MR Comment: Patient is currently being evaluated by orthopedics for left thumb pain. She states she is supposed to be in a splint but took it off earlier this evening due to generalized discomfort and malaise. She was offered cortisone injection into the tendon sheath but elected to proceed with mobilization and anti-inflammatory medication. Per Dr. Walden's most recent note. [place] Inquiry Pt receiving controlled substance: No Vital Signs: 10/27/24 06:10 10/27/24 06:14 10/27/24 06:15 Temperature 100.7 F H Temperature Source Oral Oral Pulse Rate 108 H Pulse Rate [Right Brachial] 114 H Respiratory Rate 20 Blood Pressure 137/77 Blood Pressure [Right Arm] 141/83 H Blood Pressure Mean Blood Pressure Mean [Right Arm] 102 Blood Pressure Source [Right Arm] Automatic Cuff Blood Pressure Position [Right Arm] Sitting 02 Sat by Pulse Oximetry 96 96 Oxygen Delivery Method Room Air 10/27/24 06:30 10/27/24 06:45 10/27/24 06:55 Temperature Temperature Source Pulse Rate 102 H 99 H Pulse Rate [Right Brachial] Respiratory Rate Blood Pressure 118/68 117/68 116/70 Blood Pressure [Right Arm] Blood Pressure Mean 82 Blood Pressure Mean [Right Arm] Blood Pressure Source [Right Arm] Blood Pressure Position [Right Arm] 02 Sat by Pulse Oximetry 97 96 Oxygen Delivery Method 10/27/24 07:00 Temperature Temperature Source Pulse Rate 97 H Pulse Rate [Right Brachial] Respiratory Rate Blood Pressure 114/63 Blood Pressure [Right Arm] Blood Pressure Mean Blood Pressure Mean [Right Arm] Blood Pressure Source [Right Arm] Blood Pressure Position [Right Arm] 02 Sat by Pulse Oximetry 96 Oxygen Delivery Method Room Air Lab Data Lab Results 10/27/24 06:09: SARS-CoV-2 (PCR) Detected A, Influenza A Untype (PCR) Not detected, Influenza Type B (PCR) Not detected 10/27/24 06:54: Urine Color Yellow, Urine Appearance Clear, Urine pH 5.5, Ur Specific [place] >= 1.030, Urine Protein Negative, Urine Glucose (UA) Negative, Urine Ketones Negative, Urine Blood Trace-i, Urine Nitrate Negative, Urine Santos irubin Negative, Urine Urobilinogen 0.2, Ur Leukocyte Esterase Negative Orders (Tests/Meds): ED MEDICATIONS Discontinued Medications Generic Name Dose Route Start Last Admin Trade Name Kush PRN Reason Stop Dose Admin Ketorolac Tromethamine 15 mg 10/27/24 06:31 10/27/24 06:32 Ketorolac 30mg/Ml Vial IM 10/27/24 06:32 15 mg ONCE ONE Administration Ondansetron HCl 4 mg 10/27/24 06:19 10/27/24 06:21 Ondansetron 4mg Odt SL 10/27/24 06:20 4 mg ONCE ONE Administration ORDERS Category Date Time Status HIV (1&2) Antibody Rapid Stat Lab 10/27/24 06:13 Ordered Hep C Ab with Reflex to RNA Stat Lab 10/27/24 06:13 Ordered Rapid PCR Covid and Flu A/B Stat Lab 10/27/24 06:09 Completed Urinalysis and Microscopic Stat Lab 10/27/24 06:54 Results Medical Decision Narrative: In summary, this 49-year-old female with comorbidities described in the HPI presents to the emergency department today with cough, congestion, nausea, fevers, myalgias, urinary urgency. On initial evaluation patient is mildly tachycardic, febrile to 100.7, she has diffuse myalgias on exam without findings of trauma, she has no findings of blood clot though I did consider this given she has on tamoxifen, her diffuse equal pain throughout goes very much against the diagnosis of blood clot. Differential diagnosis includes but is not limited to viral syndrome including COVID, influenza, other virus, I considered pneumonia but patient has clear lungs bilaterally and saturating well on room air, also considered urinary tract infection. Based on these concerns, I ordered viral swab, urinalysis. Patient is receiving Toradol, Zofran for treatment of symptoms. Patient handed off to Dr. Avina in stable condition pending results of laboratory workup. <Sarkis Avina MD - Last Filed: 10/27/24 07:14> Vital Signs: 10/27/24 06:10 10/27/24 06:14 10/27/24 06:15 Temperature 100.7 F H Temperature Source Oral Oral Pulse Rate 108 H Pulse Rate [Right Brachial] 114 H Respiratory Rate 20 Blood Pressure 137/77 Blood Pressure [Right Arm] 141/83 H Blood Pressure Mean Blood Pressure Mean [Right Arm] 102 Blood Pressure Source [Right Arm] Automatic Cuff Blood Pressure Position [Right Arm] Sitting 02 Sat by Pulse Oximetry 96 96 Oxygen Delivery Method Room Air 10/27/24 06:30 10/27/24 06:45 10/27/24 06:55 Temperature Temperature Source Pulse Rate 102 H 99 H Pulse Rate [Right Brachial] Respiratory Rate Blood Pressure 118/68 117/68 116/70 Blood Pressure [Right Arm] Blood Pressure Mean 82 Blood Pressure Mean [Right Arm] Blood Pressure Source [Right Arm] Blood Pressure Position [Right Arm] 02 Sat by Pulse Oximetry 97 96 Oxygen Delivery Method 10/27/24 07:00 Temperature Temperature Source Pulse Rate 97 H Pulse Rate [Right Brachial] Respiratory Rate Blood Pressure 114/63 Blood Pressure [Right Arm] Blood Pressure Mean Blood Pressure Mean [Right Arm] Blood Pressure Source [Right Arm] Blood Pressure Position [Right Arm] 02 Sat by Pulse Oximetry 96 Oxygen Delivery Method Room Air Lab Data Lab Results 10/27/24 06:09: SARS-CoV-2 (PCR) Detected A, Influenza A Untype (PCR) Not detected, Influenza Type B (PCR) Not detected 10/27/24 06:54: Urine Color Yellow, Urine Appearance Clear, Urine pH 5.5, Ur Specific [place] >= 1.030, Urine Protein Negative, Urine Glucose (UA) Negative, Urine Ketones Negative, Urine Blood Trace-i, Urine Nitrate Negative, Urine Bilirubin Negative, Urine Urobilinogen 0.2, Ur Leukocyte Esterase Negative Orders (Tests/Meds): ED MEDICATIONS Discontinued Medications Generic Name Dose Route Start Last Admin Trade Name Keithq PRN Reason Stop Dose Admin Ketorolac Tromethamine 15 mg 10/27/24 06:31 10/27/24 06:32 Ketorolac 30mg/Ml Vial IM 10/27/24 06:32 15 mg ONCE ONE Administration Ondansetron HCl 4 mg 10/27/24 06:19 10/27/24 06:21 Ondansetron 4mg Odt SL 10/27/24 06:20 4 mg ONCE ONE Administration ORDERS Category Date Time Status HIV (1&2) Antibody Rapid Stat Lab 10/27/24 06:13 Ordered Hep C Ab with Reflex to RNA Stat Lab 10/27/24 06:13 Ordered Rapid PCR Covid and Flu A/B Stat Lab 10/27/24 06:09 Completed Urinalysis and Microscopic Stat Lab 10/27/24 06:54 Results Medical Decision Narrative: In summary, this 49-year-old female with comorbidities described in the HPI presents to the emergency department today with cough, congestion, nausea, fevers, myalgias, urinary urgency. On initial evaluation patient is mildly tachycardic, febrile to 100.7, she has diffuse myalgias on exam without findings of trauma, she has no findings of blood clot though I did consider this given she has on tamoxifen, her diffuse equal pain throughout goes very much against the diagnosis of blood clot. Differential diagnosis includes but is not limited to viral syndrome including COVID, influenza, other virus, I considered pneumonia but patient has clear lungs bilaterally and saturating well on room air, also considered urinary tract infection. Based on these concerns, I ordered viral swab, urinalysis. Patient is receiving Toradol, Zofran for treatment of symptoms. Patient handed off to Dr. Avina in stable condition pending results of laboratory workup. Sarkis Avina: Upon assumption of care patient was hemodynamically stable. Workup reviewed by me, COVID-positive, urinalysis dip negative and not consistent with infection on my independent interpretation. Upon repeat evaluation patient continued remained hemodynamically stable saturating in the high 90s on room air. On my auscultation of the chest I do not hear any adventitious lung sounds concerning for pneumonia. Given this patient is appropriate for outpatient management at this time was given return precautions. Critical Care <Andrew Pearce MD - Last Filed: 10/27/24 06:51> Critical Care Time Critical Care Time: No
[2024-10-27] MEDS: KETOROLAC 30MG/ML VIAL 15 MG IM (06:32)
[2024-10-27 06:41] LABS: Influenza A, PCR Not Detected (NotDetected); Influenza B, PCR Not Detected (NotDetected)
[2024-10-27 06:59] LABS: Microscopic, Urine URINE MICROSCOPIC (MICROSCOPIC)
[2024-10-27 07:01] LABS: Appearance,Urine CLEAR (Clear); Bilirubin,Urine Negative (Negative); Blood, Urine TRACE-I (Negative); Color,Urine YELLOW (Yellow); Glucose,Urine (UA) Negative (Negative); Ketones,Urine Negative (Negative); Leukocyte Esterase,Urine Negative (Negative); Nitrate,Urine Negative (Negative); PH,Urine 5.5 (5.0-8.5); Protein,Urine Negative (Negative); Specific Gravity, Urine >= 1.030 (1.005-1.030); Urobilinogen,Urine 0.2 EU/dl (0.2)
[2024-10-27 07:05] LABS: Coronavirus 19, PCR Detected (NotDetected)
[2024-10-27 08:03] LABS: Bacteria,Urine 2+ /lpf; RBC,Urine Occasional #/hpf (0-3); WBC,Urine Occasional #/hpf (0-3)
== END 2024-10-27 07:17 | disposition home or self-care (01) ==
PROVIDERS: Emergency Provider Emergency Medicine; PCP Family Medicine
DX: U07.1 COVID-19 (principal); R50.9 Fever, unspecified; R05.9 Cough, unspecified; R09.81 Nasal congestion; R11.0 Nausea; M79.10 Myalgia, unspecified site; R53.83 Other fatigue; R39.15 Urgency of urination
CPT/HCPCS: 81001; 87086; 87636; 96372; 99283; J1885; Q0162

== ENCOUNTER 2025-01-28 09:38 | Outpatient (CLI) | payer BC, SELFPAY ==
[2025-01-28 16:47] LABS: Basophils # 0.1 K/mm3 (0-0.2); Eosinophils # 0.2 K/mm3 (0.0-0.4); Eosinophils % 3.3 % (0.1-12.0); Hematocrit 41.9 % (37.0-47.0); Hemoglobin 13.6 g/dL (12.2-16.2); Lymphocytes # 2.6 K/mm3 (0.7-4.5); Lymphocytes % 35.5 % (10-50); Mean Corpuscular HGB Conc 32.5 g/dL (31.8-35.4); Mean Corpuscular Hemoglobin 29.7 pg (27.0-31.2); Mean Corpuscular Volume 91.5 fl (81-99); Monocytes # 0.4 K/mm3 (0.1-1.0); Neutrophils # 3.9 K/mm3 (1.8-7.8); Neutrophils % 53.9 % (37.0-80.0); Platelet Count 256 K/mm3 (142-424); Red Blood Count 4.58 M/mm3 (4.20-5.40); Red Cell Distribution Width 13.2 % (11.5-17.5); White Blood Count 7.2 K/mm3 (4.8-10.8)
[2025-01-28 18:09] LABS: Hemoglobin A1C 5.3 % (4.0-6.0)
[2025-01-28 18:12] LABS: Alanine Aminotransferase 30 U/L (12-78); Albumin Level 4.1 g/dl (3.5-5.0); Albumin/Globulin Ratio 1.4 (1.1-1.8); Alkaline Phosphatase 103 U/L (38-126); Anion Gap 17.1 mEq/L (5-15); Aspartate Amino Transferase 38 U/L (14-36); Bilirubin,Total 0.5 mg/dl (0.2-1.3); Blood Urea Nitrogen 13 mg/dl (7-17); Calcium 9.5 mg/dl (8.4-10.2); Carbon Dioxide 18 mmol/L (22.0-30.0); Chloride 108 mmol/L (98-107); Chol/HDL Ratio 6.5 (1-3.5); Cholesterol 240 mg/dl (140-200); Estimated Glomerular Filt Rate 106 ml/min (>60); GFR (African American) 129 ML/MIN (>60); Globulin 2.9 g/dL (1.3-3.2); Glucose 90 mg/dl (74-100); HDL Cholesterol 37 mg/dl (40-60); Potassium 4.1 mmoL/L (3.5-5.1); Sodium 139 mmol/L (136-145)
[2025-01-28 18:29] LABS: Direct LDL Cholesterol < 30.00 mg/dL (100-129); Triglycerides 1546 mg/dl (30-150)
[2025-01-28 18:30] LABS: 25-OH Vitamin D, Total 20.2 ng/mL (30-100)
[2025-01-28 18:41] LABS: Thyroid Stimulating Hormone 3.83 uIU/mL (0.465-4.68)
[2025-01-28 18:49] LABS: HIV Combo NEGATIVE (Negative)
[2025-01-28 18:57] LABS: Hepatitis C Ab Qual. W/ RFX NEGATIVE (Negative)
[2025-01-28 19:00] LABS: Vitamin B12 407 pg/mL (239-931)
[2025-01-30 08:13] LABS: FSH 12.8 mIU/mL (.)
== END 2025-01-28 23:59 | disposition home or self-care (01) ==
LOC: LAB.DROPOF 01-29 10:31
PROVIDERS: PCP Nurse Practitioner Family; Visit Provider Nurse Practitioner Family
DX: E78.1 Pure hyperglyceridemia (principal); R53.83 Other fatigue; Z11.4 Encounter for screening for human immunodeficiency virus [HIV]; Z11.59 Encounter for screening for other viral diseases; N39.0 Urinary tract infection, site not specified
CPT/HCPCS: 80053; 80061; 82306; 82607; 83001; 83002; 83036; 84443; 85025; 86803; 87086; 87389

== ENCOUNTER 2025-03-03 17:26 | Outpatient (CLI) | payer BC, SELFPAY ==
[2025-03-03 19:05] LABS: Cholesterol 220 mg/dl (140-200); HDL Cholesterol 55 mg/dl (40-60); Triglycerides 154 mg/dl (30-150); VLDL Cholesterol 31 mg/dL (0-40)
[2025-03-03 19:17] LABS: Direct LDL Cholesterol 127.56 mg/dL (100-129)
== END 2025-03-03 23:59 | disposition home or self-care (01) ==
LOC: LAB.DROPOF 17:29
PROVIDERS: PCP Family Medicine; Visit Provider Family Medicine
DX: Z51.81 Encounter for therapeutic drug level monitoring (principal); Z91.89 Other specified personal risk factors, not elsewhere classified; E78.1 Pure hyperglyceridemia; Z79.810 Long term (current) use of selective estrogen receptor modulators (SERMs)
CPT/HCPCS: 80061

== ENCOUNTER 2025-04-20 18:31 | Outpatient (CLI) | payer BC, SELFPAY ==
--- OUTSIDE RECORDS SUMMARY | 2025-04-20 18:36 | XMS_ITS | Clinical Summary ---
Author Organization [employer] Address [address] [place] [address] Care Team Providers Care Earth Science Technical Officer Name Role Phone Ac Oliva MD Primary Care Provider [phone] Sarkis Mayen PA-C Unavailable [phone] Allergies Active Allergy Reactions Criticality Noted Date Comments Amoxicillin-Pot Clavulanate Nausea And Vomiting,Hives High 07/15/2024 Sulfa (Sulfonamide Antibiotics) Nausea Only 07/15/2024 Medications ubrogepant (Ubrelvy) 100 mg tab Take 100 mg by mouth as needed. 06/11/2024 Active tamoxifen (NOLVADEX) 10 MG tablet Take 0.5 tablets (5 mg total) by mouth daily. 12/29/2024 Active levothyroxine (SYNTHROID) 88 MCG tablet Take 1 tablet (88 mcg total) by mouth Daily (0600). 02/27/2024 Active ibuprofen (MOTRIN) 800 MG tablet Take 1 tablet (800 mg total) by mouth as needed. Active fenofibrate (TRICOR) 145 MG tablet Take 1 tablet (145 mg total) by mouth daily. Active famotidine (PEPCID) 20 MG tablet Take 1 tablet (20 mg total) by mouth as needed. Active cholecalciferol (VITAMIN D3) 1,250 mcg (50,000 unit) capsule Take 1 capsule (1,250 mcg total) by mouth once a week. 01/29/2025 Active Active Problems No known active problems Encounters Date Type Department Care Team Description 02/15/2025 10:30 AM EDT Office Visit [facility] - [address] [place] [address] Sarkis Mayen PA-C Trigger finger of left thumb (Primary Dx) from Last 3 Months Family History Medical History Relation Name Comments Cancer Other Diabetes Other Hypertension Other Liver disease Other Relation Name Status Comments Other Social History Tobacco Use Types Packs/Day Years Used Date Smoking Tobacco: Never Smokeless Tobacco: Never Tobacco Cessation:Counseling Given: Not Answered Alcohol Use Standard Drinks/Week Comments Yes 0 (1 standard drink = 0.6 oz pur e alcohol) rarely Comments Unknown Sex and Gender Information Value Date Recorded Sex Assigned at Not on file Legal Sex Female 4:39 PM CDT Gender Identity Not on file Sexual Orientation Not on file Last Filed Vital Signs Vital Sign Reading Time Taken Comments Blood Pressure 132/89 02/15/2025 10:59 AM EDT Pulse 75 02/15/2025 10:59 AM EDT Temperature - - Respiratory Rate - - Oxygen Saturation - - Inhaled Oxygen Concentration - - Weight 77.1 kg (170 lb) 02/15/2025 10:59 AM EDT Height 165.1 cm (5' 5 ) 02/15/2025 10:59 AM EDT Body Mass Index 28.29 02/15/2025 10:59 AM EDT Plan of Treatment Health Maintenance Due Date Last Done Comments CT Colonography 1975 Colonoscopy 1975 Colorectal Cancer Screening 1975 FOBT/FIT 1975 Fit-DNA (Cologuard) 1975 Sigmoidoscopy 1975 Depression Screening (12+) 1987 HIV Screening 1990 Hepatitis C Screening 1993 DTAP/TDAP/TD VACCINES (1 - Tdap) 1994 Pap Smear 1996 Lipid Panel 2020 COVID-19 VACCINE (3 - 2023-2 5 season) 2024 01/26/2021, 12/29/2020 Influenza Vaccine (Season Ended) 2025 08/23/2020 Breast Cancer Screening 01/23/2026 01/24/20 24, 06/12/2021 Tobacco Cessation Counseling and Screening (12+) 02/15/2026 02/15/2025 Pneumococcal Vaccine: 0-49 Years Aged Out No longer eligible b ased on patient's age to complete this topic Procedures Procedure Name Priority Date/Time Associated Diagnosis Comments FS_[facility]_MODEL GENERAL FORM Routine 02/15/2025 12:00 PM EDT Trigger finger of left thumb from Last 3 Months Results * Left trigger thumb injection (02/15/2025 12:00 PM EDT) Sarkis Kent PA-C - 02/15/2025 12:00 PM EDT Sarkis Mayen PA-C 02/15/2025 12:01 PM Left trigger thumb injection Date/Time: 02/15/2025 12:00 PM Performed by: Sarkis Mayen PA-C Authorized by: Sarkis Mayen PA-C Consent: Consent obtained: Verbal and written Consent given by: Patient Risks, benefits, and alternatives were discussed: yes Risks discussed: Bleeding, infection, pain, incomplete drainage, nerve damage and poor cosmetic result [place] protocol: Procedure explained and questions answered to patient or proxy's satisfaction: yes Relevant documents present and verified: yes Test results available: yes Imaging studies available: yes Site/side marked: yes Immediately prior to procedure, a time out was called: yes Patient identity confirmed: Verbally with patient Pre-procedure details: Preparation: Patient was prepped and draped in the usual sterile fashion Sedation: Sedation type: None Anesthesia: Anesthesia method: Topical application (See MAR) Procedure specific details: Left trigger thumb injection. The hand was positioned in the supine position with the volar hand pointing dorsally. The a1 loyda site was prepped with alcohol swabs. The a1 loyda was identified at the base of the finger just proximal to the volar MCPJ crease. The a1 loyda was injected with 1ml of 1% lidocaine and Kenalog 10mg. Effects from the injection may take several days to be noticeable. Contact the office in 2 weeks if absolutely no improvement noted. Post-procedure details: Procedure completion: Tolerated well, no immediate complications Sarkis Mayen PA-C PROCEDURE/MINOR SURGICAL ORDE RITU Final Result from Last 3 Months Insurance BLUE CROSS/BLUE SHIELD Care Teams Earth Science Technical Officer Relationship Specialty Start Date End Date Ac Oliva MD [address] [place] [address] [place] [address] PCP - General Family Medicine 02/15/25 Sarkis Mayen PA-C [address] [facility] [address] [place] [address] Physician Commissions Coordinator Orthopedic Surgery 02/15/25
--- OUTSIDE RECORDS SUMMARY | 2025-04-20 18:36 | XMS_ITS | Referral Summary ---
Author Organization [employer] Address [address] [place] [address] Care Team Providers Care Director Of Engineering Name Role Phone Ac Oliva MD Primary Care Provider [phone] Sarkis Mayen PA-C Unavailable [phone] Encounters Date Type Department Care Team Description 02/15/2025 10:30 AM EDT Office Visit [facility] Orthopedics - [address] [place] [address] Sarkis Mayen PA-C Trigger finger of left thumb (Primary Dx) from Last 3 Months Allergies Active Allergy Reactions Criticality Noted Date [...] Active Active Problems No known active problems Social History Tobacco Use Types Packs/Day Years [...] 02/15/2025 10:59 AM EDT Plan of Treatment Not on file Procedures Procedure Name Priority Date/Time Associated Diagnosis Comments FS_[facility]_MODEL GENERAL FORM Routine 02/15/2025 12:00 PM EDT Trigger finger of left thumb from Last 3 Months Results * Left trigger thumb injection (02/15/2025 12:00 PM EDT) Narrative Sarkis Mayen PA-C - 02/15/2025 12:00 PM EDT Sarkis Mayen PA-C 02/15/2025 12:01 PM Left trigger thumb injection Date/Time: 02/15/2025 12:00 PM Performed by: Sarkis Mayen PA-C Authorized by: Sarkis Mayen PA-C Consent: Consent obtained: Verbal and written Consent given by: Patient Risks, benefits, and alternatives were discussed: yes Risks discussed: Bleeding, infection, pain, incomplete drainage, nerve damage and poor cosmetic result [place] protocol: Procedure explained and questions answered to [...] immediate complications Sarkis Mayen PA-C PROCEDURE/MINOR SURGICAL DURAN [place]ANEY Final Result from Last 3 Months Insurance BLUE CROSS/BLUE SHIELD Care Teams Director Of Engineering Relationship Specialty Start Date End Date Ac Oliva MD [address] [place] [address] PCP - General Family Medicine 02/15/25 Sarkis Mayen PA-C [address] [facility] [address] [place] [address] Physician Information Assurance Officer Orthopedic Surgery 02/15/25
[2025-04-20 20:02] LABS: Chol/HDL Ratio 4.3 (1-3.5); Cholesterol 212 mg/dl (140-200); HDL Cholesterol 49 mg/dl (40-60); Triglycerides 163 mg/dl (30-150); VLDL Cholesterol 33 mg/dL (0-40)
[2025-04-20 20:14] LABS: Direct LDL Cholesterol 126.15 mg/dL (100-129)
== END 2025-04-20 23:59 | disposition home or self-care (01) ==
LOC: LAB.DROPOF 18:34
PROVIDERS: Visit Provider Nurse Practitioner Family
DX: E78.1 Pure hyperglyceridemia (principal); Z51.81 Encounter for therapeutic drug level monitoring; Z91.89 Other specified personal risk factors, not elsewhere classified; Z79.810 Long term (current) use of selective estrogen receptor modulators (SERMs)
CPT/HCPCS: 80061

== ENCOUNTER 2025-06-04 17:16 | Outpatient (CLI) | payer BC, SELFPAY ==
--- OUTSIDE RECORDS SUMMARY | 2025-05-03 11:00 | XMS_ITS | Encounter Summary ---
[facility] Address [address] [place] [address] Care Team Providers Care Family Psychologist Name Role Phone Ac Oliva MD Primary Care Provider +1- [phone] Encounter Details Date Type Department Care Team (Late st Contact Info) Description 05/03/2025 11:00 AM EDT Office Visit [facility] HEMATOLOGY & ONCOLOGY [address] [facility] [address] [place] [phone] Irene Silva APRN [address] [facility] [address] [place] [address] Atypical ductal hyperplasia of right breast (Primary Dx); Atypical lobular hyperplasia (ALH) of left breast; Prophylactic use of tamoxifen; High triglycerides Social History Tobacco Use Types Packs/Day Years Used Date Smoking Tobacco: Never Passive Smoke Exposure: Never Smokeless Tobacco: Never Alcohol Use Standard Drinks/Week Comments Never 0 (1 standard drink = 0.6 oz pur e alcohol) PHQ-2 Answer Date Recorded Patient Health Questionnaire-2 Score 0 05/03/2025 Comments No Sex and Gender Information Value Date Recorded Sex Assigned at Female 05/02/2025 9:34 PM EDT Legal Sex Female 8:29 AM EST Gender Identity Not on file Sexual Orientation Straight 05/02/2025 9: 34 PM EDT documented as of this encounter Last Filed Vital Signs Vital Sign Reading Time Taken Comments Blood Pressure 112/77 05/03/2025 10:53 AM EDT JAGJIT E Pulse 58 05/03/2025 10:53 AM EDT Temperature 36.8 C (98.2 F) 05/03/2025 10:53 AM EDT Respiratory Rate 20 05/03/2025 10:53 AM EDT Oxygen Saturation 98% 05/03/2025 10:53 AM EDT RA Inhaled Oxygen Concentration - - Weight 78 kg (172 lb) 05/03/2025 10:53 AM EDT Height 165.1 cm (5' 5 ) 05/03/2025 10:53 AM EDT Body Mass Index 28.62 05/03/2025 10:53 AM EDT documented in this encounter Functional Status documented as of this encounter Progress Notes * Irene Silva, OPTOMECHANICAL ENGINEER - 05/03/2025 11:00 AM EDT [facility] Follow up Jaelyn Smith [id number] Subjective Chief Complaint: Follow up of Tamoxifen HISTORY OF PRESENT ILLNESS: Jaelyn Smith is a 49 y.o. year old female here today for follow up in the high risk clinic following initiation of Tamoxifen. Seen in initial consultation on 05/20/[address] PEREZ with a history of right breast ADH/ALH 2020, 01/17/2023 left breast ALH on stereotactic biopsy. Last biopsy was an excisional left breast 07/06/[address] PEREZ. Findings showing no residual atypia or evidence of malignancy. Started on preventative Tamoxifen 08/09/24 at 20 mg daily and has been decreased to 5 mgdaily due to fatigue/joint pain. She was tolerating treatment well. Her fenofibrate was held by PCPwith initiation of tamoxifen with significant increase in TG to the 1500's. Her fenofibrate was restarted. Discussed pt with Dr. Manzanares and her tamoxifen was held and rechecking of FLP at the end of March. 04/20/25 labs (reviewed on pt portal) showed TG 163, TC 212, LDL 126, HDL 49. She now presents forreintroduction of tamoxifen. She did have breakthrough menstrual cycle in February with her last 8 months ago. She was perimenopausal prior to tamoxifen initiation. Denies any abdominal pain, nausea or vomiting. Last mammogram 03/01/25 BI-RADS 1. Breast MRI planned for Aug 2025. No new breast symptoms The current medication list and allergy list were reviewed and reconciled. Past Medical History: Diagnosis Date Atypical ductal hyperplasia of right breast 2019 Atypical lobular hyperplasia (ALH) of left breast 2022 Cancer 09/16 Breast Cervical disc disorder 2020 Hyperlipidemia Hypothyroidism Migraines Past Surgical History: Procedure Laterality Date BREAST BIOPSY Right 10/2020 adh BREAST BIOPSY Left 06/202307/26/23 excisional- alh BREAST BIOPSY Left 2019 adh BREAST LUMPECTOMY Bilateral 2022, 2020 Family History Problem Relation Age of Onset Breast cancer Mother 64 bilateral breast cancer, second breast cancer dx not long after the first. did not have genetic testing Diabetes Mother Hyperlipidemia Mother Liver disease Mother Liver cancer Maternal Grandfather Lung cancer Maternal Grandfather Breast cancer Maternal Cousin 30 - 39 Ovarian cancer Neg Hx Reproductive: Age of first live : 25 years Age of first menstrual period: 13 years Pre/miguel/postmenopause: Premenopause HRT use: Never Contraception use: Current Sprintec Last Pap smear: 2022 Health Maintenance: Regular self breast exam: yes Mammogram: History of abnormal mammogram: yes - Last 3/ Breast MRI: 02/27/23. Results: negative Risk Asessment: Genetic Testin negative by DNA sequencing and rearrangement testing for deleterious mutations in the BRCA1/2 genes and 34 additional genes included on the CancerNext Panel Review of Systems Constitutional: Negative for fatigue. Respiratory: Negative. Cardiovascular: Negative. Gastrointestinal: Negative for abdominal pain and blood in stool. Genitourinary: Negative for breast discharge, breast lump, breast pain and vaginal bleeding. Skin: Negative. Neurological: Negative. BP 112/77 Comment: LUE Pulse 58 Temp 98.2 ??F (36.8 ??C) (Temporal) Resp 20 Ht 165.1 cm (65 ) Wt 78 kg (172 lb) SpO2 98% Comment: RA BMI 28.62 kg/m?? Vitals: 05/03/25 1053 PainSc: 0-No pain Objective Physical Exam Vitals and nursing note reviewed. Constitutional: Appearance: Normal appearance. HENT: Head: Normocephalic and atraumatic. Cardiovascular: Rate and Rhythm: Normal rate and regular rhythm. Heart sounds: Normal heart sounds, S1 normal and S2 normal. No murmur heard. Pulmonary: Effort: Pulmonary effort is normal. Breath sounds: Normal breath sounds. Abdominal: Palpations: Abdomen is soft. Musculoskeletal: Cervical back: Neck supple. Right lower leg: No edema. Left lower leg: No edema. Lymphadenopathy: Cervical: No cervical adenopathy. Skin: General: Skin is warm and dry. Neurological: General: No focal deficit present. Mental Status: She is alert and oriented to person, place, and time. Psychiatric: Mood and Affect: Mood normal. Behavior: Behavior normal. Behavior is cooperative. Thought Content: Thought content normal. Judgment: Judgment normal. Result Review Mammo Screening Digital Tomosynthesis Bilateral With CAD Narrative: ROUTINE DIGITAL SCREENING MAMMOGRAM WITH TOMOSYNTHESIS HISTORY: Routine screening. IMAGE COMPARISON: Extending to 2022. TECHNIQUE: Low dose full field digital breast tomosynthesis imaging was performed with 2D and 3D acquisitions consisting of bilateral CC and MLO views. FINDINGS: There are scattered fibroglandular densities. The fibroglandular pattern appears stable. There is no mass, worrisome microcalcifications, or architectural distortion to suggest development of malignancy. Areas of postsurgical change bilaterally. Impression: No findings suspicious for malignancy. ACR BI-RADS CATEGORY: 1, NEGATIVE RECOMMENDATION: Yearly mammogram, yearly clinical breast exam, and encourage self breast awareness. The patient's calculated lifetime risk of breast cancer is 33.7%, she is considered at high risk for developing breast malignancy and annual high-risk screening with breast MRI is recommended. CAD was used. The standard false negative rate of mammography is between 10% and 25%. Complex patterns or increased breast density will markedly elevate the false negative rate of mammography. A letter, in lay terminology, with the results of this exam will be mailed to the patient. If there is a palpable area of concern, biopsy should be considered regardless of imaging findings. 03/02/2025 6:43 PM by Cassie Lamar MD on Assessment and Plan: Diagnoses and all orders for this visit: 1. Atypical ductal hyperplasia of right breast (Primary) - Cancel: Lipid Panel - Lipid Panel; Future 2. Atypical lobular hyperplasia (ALH) of left breast - Cancel: Lipid Panel - Lipid Panel; Future 3. Prophylactic use of tamoxifen - Cancel: Lipid Panel - Lipid Panel; Future 4. High triglycerides - Cancel: Lipid Panel - Lipid Panel; Future -Some intermittent side effects with initiation of Tamoxifen x 1 month. Improved with decrease of tamoxifen to 5 mg daily. -Significant elevation of TG in the 1500's with d/c of fenofibrate. Tamoxifen was held -04/20/25 labs (reviewed on pt portal): TG 163, TC 212, LDL 126, HDL 49. Labs have now stabilized with reinitiation of fenofibrate and now plans to rechallenge with Tamoxifen 5 mg daily. Will recheck FLP in 1 month. If TG become elevated again, will discontinue. Asked pt to monitor for signs of pancreatitis. -May mammogram BI-RADS 1 -Annual breast MRI Aug 2025. -Continue monthly breast exams Follow up 1 month with repeat labs/video visit I spent 32 minutes caring for Jaelyn. This includes time spent by me in the following activities: preparing for visit, reviewing tests, obtaining history, education, discussing with another provider, ordering necessary medications/testing and documenting in the medical record. Irene Silva APRN Hematology Oncology documented in this encounter Plan of Treatment Upcoming Encounters Date Type Department Care Team (Late st Contact Info) Description 06/07/2025 11:30 AM EDT Telemedicine [facility] HEMATOLOGY & ONCOLOGY [address] [place] [phone] Irene Silva APRN [address] [facility] [address] [place] [id number] 08/23/2025 11:00 AM EDT Office Visit [facility] HEMATOLOGY & ONCOLOGY [address] [place] [phone] Irene Silva APRN [address] [facility] [address] [place] [id number] Scheduled Orders Name Type Priority Associated Diagnoses Orde r Schedule Lipid Panel Lab STAT Atypical ductal hyperplasia of right breast Atypical lobular hyperplasia (ALH) of left breast Prophylactic use of tamoxifen High triglycerides Expected: 06/03/2025 (Approximate), Expires: 08/03/2026 documented as of this encounter Visit Diagnoses Diagnosis Atypical ductal hyperplasia of right breast- Primary Atypical lobular hyperplasia (ALH) of left breast Prophylactic use of tamoxifen Prophylactic use of selective estrogen receptor modulators (SERMs) High triglycerides Unspecified disorder of lipoid metabolism documented in this encounter Care Teams Family Psychologist Relationship Specialty Start Date End Date Ac Oliva MD [address] [place] [address] PCP - General Family Medicine 07/26/23 documented as of this encounter
--- OUTSIDE RECORDS SUMMARY | 2025-06-04 17:19 | XMS_ITS | Clinical Summary ---
[facility] [address] [place] [address] Care Team Providers Care Manager Credit Name Role Phone Ac Oliva MD Primary Care Provider +1- [phone] Allergies Active Allergy Reactions Criticality Noted Date Comments Amoxicillin-Pot Clavulanate Nausea And Vomiting Medium 07/15/2024 Sulfa Antibiotics Nausea Only Low 07/15/2024 Medications levothyroxine (SYNTHROID, LEVOTHROID) 88 MCG tablet Take 1 tablet by mouth Every Morning. 02/27/2024 Active fenofibrate (TRICOR) 145 MG tablet Take 1 tablet by mouth Daily. Active ibuprofen (ADVIL,MOTRIN) 800 MG tablet Take 1 tablet by mouth Every 6 (Six) Hours As Needed for Mild Pain. Active CRANBERRY EXTRACT PO Take 1 capsule by mouth Daily. Active Ubrelvy 100 MG tablet 1 tablet. 06/11/2024 Active famotidine (PEPCID) 20 MG tablet 1 tablet. Active tamoxifen (NOLVADEX) 10 MG tabletIndication s:Atypical ductal hyperplasia of right breast,Atypical lobular hyperplasia (ALH) of left breast Take 0.5 tablets by mouth Daily. 30 tablet 5 12/29/2024 Active calcium carbonate (Calcium 600) 600 MG tablet Take 1 tablet by mouth Daily. 08/21/2024 Active cholecalciferol (VITAMIN D3) 1.25 MG (51793 UT) capsule Take 1 capsule by mouth Every 7 (Seven) Days. 01/29/2025 Active Active Problems Problem Noted Date Diagnosed Date At high risk for breast cancer 05/20/2024 Atypical lobular hyperplasia (ALH) of left breas t 10/28/2022 Atypical ductal hyperplasia of right breast 10/2019 Encounters Date Type Department Care Team Description 05/03/2025 11:00 AM EDT Office Visit [facility] HEMATOLOGY & ONCOLOGY [address] [facility] [address] [place] [phone] Irene Silva APRN Atypical ductal hyperplasia of right breast (Primary Dx); Atypical lobular hyperplasia (ALH) of left breast; Prophylactic use of tamoxifen; High triglycerides 05/03/2025 Travel from Last 3 Months Family History Medical History Relation Name Comments Breast cancer Maternal Cousin Liver cancer Maternal Grandfather Lung cancer Maternal Grandfather Breast cancer Mother Leslie bilateral inderjit st cancer, second breast cancer dx not long after the first. did not have genetic testing Diabetes Mother Leslie Hyperlipidemia Mother Leslie Liver disease Mother Leslie Ovarian cancer Neg Hx Relation Name Status Comments Father Domenic Maternal Cousin Alive Maternal Grandfather Mother Leslie Alive Social History Tobacco Use Types Packs/Day Years Used Date Smoking Tobacco: Never Passive Smoke Exposure: Never Smokeless Tobacco: Never Tobacco Cessation:Counseling Given: Not Answered Alcohol Use Standard Drinks/Week Comments Never 0 (1 standard drink = 0.6 oz pur e alcohol) PHQ-2 Answer Date Recorded Patient Health Questionnaire-2 Score 0 05/03/2025 Comments No Sex and Gender Information Value Date Recorded Sex Assigned at Female 05/02/2025 9:34 PM EDT Legal Sex Female 8:29 AM EST Gender Identity Not on file Sexual Orientation Straight 05/02/2025 9: 34 PM EDT Last Filed Vital Signs Vital Sign Reading [...] Mass Index 28.62 05/03/2025 10:53 AM EDT Plan of Treatment Upcoming Encounters Date Type Department Care Team (Late st Contact Info) Description 06/07/2025 11:30 AM EDT Telemedicine [facility] HEMATOLOGY & ONCOLOGY [address] [facility] [address] [place] [phone] Irene Silva APRN [address] [facility] [address] [place], [place] [phone] 08/23/2025 11:00 AM EDT Office Visit [facility] HEMATOLOGY & ONCOLOGY [address] [facility] [address] [place] [phone] Irene Silva APRN [address] [facility] [address] [place], [place] [phone] Health Maintenance Due Date Last Done Comments Annual Gynecologic Pelvic and Breast Exam 1975 TDAP/TD VACCINES (1 - Tdap) 1994 PAP SMEAR 1996 ANNUAL PHYSICAL 09/20/2020 HEPATITIS C SCREENING 09/20/2020 COLOGUARD 2020 COLON CANCER SCREENING 5 YEAR SIGMOIDOSCOPY 2020 COLONOSCOPY [address] CANCER SCREENING [address] COLONOGRAPHY 2020 FECAL OCCULT BLOOD TEST 2020 FIT Testing (1 year) 2020 COVID-19 Vaccine ( season) 2024 01/26/2021, 12/29/2020 LIPID PANEL 07/22/2025 07/22/2024 INFLUENZA VACCINE 07/28/2025 08/21/2022, , 08/17/2019 Annual Breast MRI 09/22/2025 09/22/2024, , 10/03/2020 MAMMOGRAM TCS >= 20 03/01/2026 03/01/2025, 01/24/2024, 12/20/2022, Additional history exists MAMMOGRAM Discontinued 03/01/2025, 12/27, 12/20/2022, Additional history exists Pneumococcal Vaccine 0-49 Aged Out No longer eligible based on patient's age to complete this topic Procedures Procedure Name Priority Date/Time Associated Diagnosis Comments MAMMO SCREENING DIGITAL TOMOSYNTHESIS BILATERAL W CAD Routine 03/01/2025 1:33 PM EDT At high risk for breast cancer Atypical ductal hyperplasia of right breast Atypical lobular hyperplasia (ALH) of left breast MRI BREAST BILATERAL SCREENING W WO CONTRAST Routine 09/22/2024 2:52 PM EST At high risk for breast cancer Atypical ductal hyperplasia of right breast Atypical lobular hyperplasia (ALH) of left breast LIPID PANEL Routine 07/22/2024 1:12 PM EDT At high risk for breast cancer Atypical ductal hyperplasia of right breast Atypical lobular hyperplasia (ALH) of left breast from Last 3 Months or Most Recently Relevant to Health Maintenance Results * Mammo Screening Digital Tomosynthesis Bilateral With CAD (03/01/2025 1:33 PM EDT) Anatomical Region Laterality Modality Breast N/A Mammography 03/02/2025 6:41 PM EDT Impressions 03/02/2025 6:43 PM EDT No findings suspicious for malignancy. ACR BI-RADS [...] 6:43 PM by Cassie Lamar MD on Narrative 03/02/2025 6:43 PM EDT ROUTINE DIGITAL SCREENING MAMMOGRAM WITH TOMOSYNTHESIS HISTORY: [...] of malignancy. Areas of postsurgical change bilaterally. us Irene Chito Silva PHYSICAL THERAPY COORDINATOR IM MAMMOGRAPHY ORDERABLES Final Result * MRI Breast Bilateral Screening With & Without Contrast (09/22/2024 2:52 PM EST) Anatomical Region Laterality Modality Breast Bilateral Magnetic Resonan ce 09/28/2024 3:13 PM EST Impressions 09/28/2024 3:31 PM EST No suspicious enhancement in either breast to suggest malignancy. BI-RADS CATEGORY: 1, NEGATIVE RECOMMENDATIONS: Continue continued annual high risk screening with breast MRI. Annual mammographic screening. This report was finalized on 09/28/2024 3:31 PM by Cassie Lamar MD. Narrative 09/28/2024 3:31 PM EST BILATERAL BREAST MRI WITH CONTRAST CLINICAL HISTORY: History of ADH bilateral breasts, ALH left breast. High risk patient per NCCN guidelines. High risk screening examination. TECHNIQUE: MRI was performed on a 1.5 Catina magnet utilizing an 8-channel sentinel breast coil. Precontrast spin-echo T1-weighted and T2-weighted sequences were obtained in the axial plane. Routine dynamic images were performed following the administration of 15 mL of MultiHance contrast. Four postcontrast runs were obtained. No contrast complications occurred. Delayed high resolution postcontrast T1 weighted sagittal images were also obtained. A CAD system (Propanc) was utilized for data analysis. COMPARISON: Prior breast MRI examinations from 2022 as well as 2019; I also have a recent I also have a prior diagnostic mammogram from 01/24/2024 for review and correlation. FINDINGS: There are scattered fibroglandular tissues. There is minimal background contrast enhancement of the fibroglandular tissue. Contrast within the heart is indicative of an adequate contrast bolus. There are no suspicious areas of contrast enhancement or suspicious enhancing masses in either breast. No significant change in glandular enhancement pattern. Postsurgical changes noted bilaterally with no associated suspicious contrast enhancement. There is no axillary or internal mammary adenopathy. Irene Silva APRN IMG MRI ORDERABLES Final R esult * (ABNORMAL) Lipid Panel (07/22/2024 1:12 PM EDT) Total Cholesterol 243(H) 0 - 200 mg/dL 07/23/2024 12:04 AM EDT [facility] Triglycerides 237(H) 0 - 150 mg/dL 07/23/2024 12:04 AM EDT [facility] HDL Cholesterol 46 40 - 60 mg/dL 07/23/2024 12:04 AM T [facility] LDL Cholesterol 153(H) 0 - 100 mg/dL 07/23/2024 12:04 AM EDT [facility] VLDL Cholesterol 44(H) 5 - 40 mg/dL 07/23/2024 12:04 AM T [facility] LDL/HDL Ratio 3.25 07/23/2024 12:04 AM T [facility] Blood Venipuncture / Unknown 07/22/2024 1:12 PM EDT 07/22/2024 1:12 PM EDT [facility] - 07/23/2024 12:04 AM EDT Cholesterol Reference Ranges (U.S. Department of Health and Human Services ATP III Classifications) Desirable <200 mg/dL Borderline High 200-239 mg/dL High Risk >240 mg/dL Triglyceride Reference Ranges (U.S. Department of Health and Human Services ATP III Classifications) Normal <150 mg/dL Borderline High 150-199 mg/dL High 200-499 mg/dL Very High >500 mg/dL HDL Reference Ranges (U.S. Department of Health and Human Services ATP III Classifications) Low <40 mg/dl (major risk factor for CHD) High >60 mg/dl ('negative' risk factor for CHD) LDL Reference Ranges (U.S. Department of Health and Human Services ATP III Classifications) Optimal <100 mg/dL Near Optimal 100-129 mg/dL Borderline High 130-159 mg/dL High 160-189 mg/dL Very High >189 mg/dL us Zena Renteria PHYSICAL THERAPY COORDINATOR LAB BLOOD ORDERABLES Fin al Result [facility]
[address] [place] [address], [place] [phone] from Last 3 Months or Most Recently Relevant to Health Maintenance Insurance PPO Care Teams Manager Credit Relationship Specialty Start Date End Date Ac Oliva MD [address] [place] [address] PCP - General Family Medicine 07/26/23
--- OUTSIDE RECORDS SUMMARY | 2025-06-04 17:19 | XMS_ITS | Encounter Summary ---
[facility] [address] [place] [address] Care Team Providers Care Statistical Consultant Name Role Phone Ac Oliva MD Primary Care Provider +1- [phone] Encounter Details Date Type Department Care Team (Late st Contact Info) Description 10/02/2020 MDT Assessment [facility] HEMATOLOGY & ONCOLOGY [address] [facility] [address] [place] [phone] Juanito Layton MD Social History Tobacco Use Types Packs/Day Years Used Date Smoking Tobacco: Never Assessed Comments Unknown Sex and Gender Information Value Date Recorded Sex Assigned at Female 05/02/2025 9:34 PM EDT Legal Sex Female 8:29 AM EST Gender Identity Not on file Sexual Orientation Straight 05/02/2025 9: 34 PM EDT documented as of this encounter Plan of Treatment Upcoming Encounters Date Type Department Care Team (Late st Contact Info) Description 06/07/2025 11:30 AM EDT Telemedicine [facility] HEMATOLOGY & ONCOLOGY [address] [facility] [address] [place] [address] Irene Silva APRN [address] [facility] [address] [place], [place] [phone] 08/23/2025 11:00 AM EDT Office Visit [facility] HEMATOLOGY & ONCOLOGY [address] [facility] [address] [place] [phone] Irene Silva, DRY BOSS [address] [facility] [address] [place] [address] documented as of this encounter Visit Diagnoses Not on filedocumented in this encounter Additional Health Concerns Infection Onset Date Last Indicated Resolved Time COVID Screen (preop/placement) 11/07/2020 11/07/2020 11/08/2020 12:36 PM EST documented as of this encounter Care Teams Statistical Consultant Relationship Specialty Start Date End Date Ac Oliva MD [address] [place] [address] PCP - General Family Medicine 07/26/23 documented as of this encounter
--- OUTSIDE RECORDS SUMMARY | 2025-06-04 17:20 | XMS_ITS | Clinical Summary ---
Author Organization adjust ([place], [place], [place], [place]) Address [address] [place] [address] Care Team Providers Care Manpower Development Manager Name Role Phone Ac Oliva MD Primary Care Provider +1- [phone] Sarkis Mayen PA-C Unavailable [phone] Allergies Active Allergy Reactions Criticality Noted Date [...] Active Active Problems No known active problems Family History Medical History Relation Name Comments [...] 5 season) 2024 01/26/2021, 12/29/2020 Influenza Vaccine (#1) 2025 08/23/2020 Breast Cancer Screening 01/23/2026 01/24/20 24, 06/12/2021 Tobacco Cessation Counseling and Screening (12+) 02/15/2026 02/15/2025 Pneumococcal Vaccine: 0-49 Years Aged Out No longer eligible b ased on patient's age to complete this topic Insurance BLUE CROSS/BLUE SHIELD Care Teams Manpower Development Manager Relationship Specialty Start Date End Date Ac Oliva MD [address] [place] [address] [place] [address] PCP - General Family Medicine 02/15/25 Sarkis Mayen PA-C [address] [facility] [address] [place] [address] Physician Multiple Slide Operator Orthopedic Surgery 02/15/25
--- OUTSIDE RECORDS SUMMARY | 2025-06-04 17:20 | XMS_ITS | Referral Summary ---
Author Organization [employer] ([place], [place], [place], [place]) Address [address] [place] [address] Care Team Providers Care Digital Media Planner Name Role Phone Ac Oliva MD Primary Care Provider [phone]- [phone] Sarkis Mayen PA-C Unavailable [phone] Allergies Active Allergy Reactions Criticality Noted Date [...] EDT Plan of Treatment [place] [id number] BLUE CROSS/BLUE SHIELD Care Teams Digital Media Planner Relationship Specialty Start Date End Date Ac Oliva MD [address] [place] [address] PCP - General Family Medicine 02/15/25 Sarkis Mayen PA-C [address] [facility] [address] [place] [address] Physician Careers Adviser Orthopedic Surgery 02/15/25
--- OUTSIDE RECORDS SUMMARY | 2025-06-04 17:20 | XMS_ITS | Encounter Summary ---
Author Organization [facility] Address [address] [place] [address] Care Team Providers Care Floral Design Teacher Name Role Phone Ac Oliva MD Primary Care Provider [phone]- [phone] Encounter Details Date Type Department Care Team (Latest Contact Info) Description 05/03/2025 Travel Social History Tobacco Use Types Packs/Day Years [...] PM EDT documented as of this encounter Functional Status documented as of this encounter Plan of Treatment Upcoming Encounters Date Type Department Care Team (Late st Contact Info) Description 06/07/2025 11:30 AM EDT Telemedicine [facility] HEMATOLOGY & ONCOLOGY [address] [phone] Irene Silva APRN [address] [facility] [address] [place] [address] 08/23/2025 11:00 AM EDT Office Visit [facility] HEMATOLOGY & ONCOLOGY [address] [facility] [address] [place] [id number] Irene Silva, ADMISSIONS CLINICIAN [address] [facility] [address] [place] [address] documented as of this encounter Visit Diagnoses Not on filedocumented in this encounter Care Teams Floral Design Teacher Relationship Specialty Start Date End Date Ac Oliva MD [address] [place] [address] PCP - General Family Medicine 07/26/23 documented as of this encounter
[2025-06-04 18:36] LABS: Cholesterol 227 mg/dl (140-200); HDL Cholesterol 44 mg/dl (40-60); Triglycerides 259 mg/dl (30-150)
== END 2025-06-04 23:59 | disposition home or self-care (01) ==
LOC: LAB.DROPOF 17:18
PROVIDERS: PCP Nurse Practitioner Family; Visit Provider Nurse Practitioner Family
DX: N60.91 Unspecified benign mammary dysplasia of right breast (principal); N60.92 Unspecified benign mammary dysplasia of left breast; Z79.810 Long term (current) use of selective estrogen receptor modulators (SERMs); E78.1 Pure hyperglyceridemia
CPT/HCPCS: 80061

== ENCOUNTER 2025-07-14 19:38 | Outpatient (CLI) | payer BC, SELFPAY ==
--- OUTSIDE RECORDS SUMMARY | 2025-05-03 11:00 | XMS_ITS | Encounter Summary ---
[facility] Address [address] [place] [address] Care Team Providers Care Warehouse Order Puller Name Role Phone Ac Oliva MD Primary Care Provider +1- [phone] Encounter Details Date Type Department Care Team (Late st Contact Info) Description 05/03/2025 11:00 AM EDT Office Visit [facility] HEMATOLOGY & ONCOLOGY [address] [facility] [address] [place] [phone] Irene Silva APRN [address] [facility] [address] [place] [address] Atypical ductal hyperplasia of right breast (Primary [...] this encounter Progress Notes * Irene Silva, CRTTS - 05/03/2025 11:00 AM EDT [facility] Follow up Jaelyn Smith [id number] Subjective Chief Complaint: Follow up of [...] Care Team (Late st Contact Info) Description 07/20/2025 3:00 PM EDT Telemedicine [address] [phone] Irene Silva APRN [address] [place] [address] [place] [phone] 08/23/2025 11:00 AM EDT Office Visit [facility] HEMATOLOGY & ONCOLOGY [address] [place] [phone] Irene Silva APRN [address] [facility] [address] [place] [id number] Scheduled Orders Name Type Priority Associated Diagnoses [...] metabolism documented in this encounter Care Teams Warehouse Order Puller Relationship Specialty Start Date End Date Ac Oliva MD [address] [place] [address] PCP - General Family Medicine 07/26/23 documented as of this encounter
--- OUTSIDE RECORDS SUMMARY | 2025-06-07 11:30 | XMS_ITS | Encounter Summary ---
Author Organization [facility] Address [address] [place] [address] Care Team Providers Care Multifocal Button Grinder Name Role Phone Ac Oliva MD Primary Care Provider [phone]- [phone] Encounter Details Date Type Department Care Team (Late st Contact Info) Description 06/07/2025 11:30 AM EDT Telemedicine [facility] HEMATOLOGY & ONCOLOGY [address] [facility] [address] [place] [phone] Irene Silva APRN 3000 [facility] [address] [place] [address] At high risk for breast cancer (Primary Dx); Atypical ductal hyperplasia of right breast; Atypical lobular hyperplasia (ALH) of left breast; Encounter for monitoring tamoxifen therapy Social History Tobacco Use Types Packs/Day Years [...] PM EDT documented as of this encounter Progress Notes * Irene Silva APRN - 06/07/2025 11:30 AM EDT [facility] Follow up Jaelyn Smith [id number] Subjective Chief Complaint: Follow up of Tamoxifen HISTORY OF PRESENT ILLNESS: Mode of Visit: Video Location of patient: -HOME- Location of provider: +[facility]+ You have chosen to receive care through a telehealth visit. The patient has signed the video visit consent form. The visit included audio and video interaction. No technical issues occurred during this visit. Jaelyn Smith is a 49 y.o. year [...] LDL 126, HDL 49. She now presents following reintroduction of tamoxifen on 05/04 with repeat labs. She did have breakthrough menstrual cycle in February while she was off tamoxifen. Denies any abdominal pain, nausea or vomiting. Last mammogram 03/01/25 BI-RADS 1. Breast MRI planned for Aug 2025. The current medication list and allergy list [...] Age of first menstrual period: 13 years Pre/mary/postmenopause: Mary HRT use: Never Last Pap smear: 2022 Risk Asessment: Genetic Testin negative by DNA sequencing and rearrangement testing for deleterious mutations in the BRCA1/2 genes and 34 additional genes included on the CancerNext Panel Review of Systems Constitutional: Negative for fatigue. Respiratory: Negative. Cardiovascular: Negative. Gastrointestinal: Negative for abdominal pain and blood in stool. Genitourinary: Negative for vaginal bleeding. Skin: Negative. There were no vitals taken for this visit. Vitals: 06/07/25 1232 PainSc: 0-No pain Objective Physical Exam Pulmonary: Effort: Pulmonary effort is normal. Neurological: Mental Status: She is alert and oriented to person, place, and time. Psychiatric: Mood and Affect: Mood normal. Result Review Mammo Screening Digital Tomosynthesis [...] and all orders for this visit: 1. At high risk for breast cancer (Primary) - Lipid Panel; Future 2. Atypical ductal hyperplasia of right breast - Lipid Panel; Future 3. Atypical lobular hyperplasia (ALH) of left breast - Lipid Panel; Future -Some intermittent side effects with initiation of Tamoxifen x 1 month. Improved with decrease of tamoxifen to 5 mg daily. -Significant elevation of TG in the 1499's with d/c of fenofibrate. Tamoxifen was held -04/20/25 labs (reviewed on pt portal): TG 163, TC 212, LDL 126, HDL 49. Labs have now stabilized with reinitiation of fenofibrate -06/04/25 HDL 44 LDL 123 TC 227 TG 259. Mild increase in TG from 163 to 259. Will continue to monitorclosely and repeat in 1 month. Will continue tamoxifen for now. However, if pt continues to have TGelevation with continued use, will discontinue. -May mammogram BI-RADS 1 -Annual breast MRI Aug 2025. -Continue monthly breast exams Follow up 1 month with repeat labs/video visit I spent 31 minutes caring for Jaelyn. This includes time [...] Info) Description 07/20/2025 3:00 PM EDT Telemedicine [facility] [address] [facility] [address] [place] [address] Irene Silva APRN 3000 [facility] [address] [place] [address] 08/23/2025 11:00 AM EDT Office Visit [facility] HEMATOLOGY & ONCOLOGY 3000 [facility] [address] [place] [address] Irene Silva APRN [address] [facility] [address] [place] [address] Scheduled Orders Name Type Priority Associated Diagnoses Orde r Schedule Lipid Panel Lab Routine At high risk for breast cancer Atypical ductal hyperplasia of right breast Atypical lobular hyperplasia (ALH) of left breast Expected: 07/08/2025 (Approximate), Expires: 09/07/2026 documented as of this encounter Visit Diagnoses Diagnosis At high risk for breast cancer- Primary Atypical ductal hyperplasia of right breast Atypical lobular hyperplasia (ALH) of left breast Encounter for monitoring tamoxifen therapy documented in this encounter Care Teams Multifocal Button Grinder Relationship Specialty Start Date End Date Ac Oliva MD [address] [place] [facility] [address] [facility] [address] PCP - General Family Medicine 07/26/23 documented as of this encounter
--- OUTSIDE RECORDS SUMMARY | 2025-07-14 19:42 | XMS_ITS | Encounter Summary ---
[facility] Address [address] [place] [address] Care Team Providers Care Coding And Reimbursement Specialist Name Role Phone Ac Oliva MD Primary Care Provider [phone]- [phone] Encounter Details Date Type Department Care Team (Late st Contact Info) Description 10/02/2020 MDT Assessment [facility] HEMATOLOGY & ONCOLOGY [address] [facility] [address] [place] [address] Juanito Layton MD Social History Tobacco Use [...] Info) Description 07/20/2025 3:00 PM EDT Telemedicine [address] [place] [address] Irene Silva APRN [address] [facility] [address] [place] [id number] 08/23/2025 11:00 AM EDT Office Visit [facility] HEMATOLOGY & ONCOLOGY [address] [facility] [address] [place] [address] Irene Silva, TILE LAYER HELPER [address] [facility] [address] [place] [address] documented as of this encounter Visit Diagnoses Not on filedocumented in this encounter Additional Health Concerns Infection Onset Date Last Indicated Resolved Time COVID Screen (preop/placement) 11/07/2020 11/07/2020 11/08/2020 12:36 PM EST documented as of this encounter Care Teams Coding And Reimbursement Specialist Relationship Specialty Start Date End Date Ac Oliva MD [address] [place] [address] PCP - General Family Medicine 07/26/23 documented as of this encounter
--- OUTSIDE RECORDS SUMMARY | 2025-07-14 19:42 | XMS_ITS | Clinical Summary ---
Author Organization [facility] Address [address] [place] [address] Care Team Providers Care Audio Visual Tech Name Role Phone Ac Oliva MD Primary Care Provider +1- [phone] Allergies Active Allergy Reactions Criticality Noted Date [...] 08/21/2024 Active cholecalciferol (VITAMIN D3) 1.25 MG (67302 UT) capsule Take 1 capsule by mouth Every 7 (Seven) Days. 01/29/2025 Active Active Problems Problem Noted Date Diagnosed Date At high risk for breast cancer 05/20/2024 Atypical lobular hyperplasia (ALH) of left breas t 10/28/2022 Atypical ductal hyperplasia of right breast 10/2019 Encounters Date Type Department Care Team Description 06/07/2025 11:[address] [facility] HEMATOLOGY & ONCOLOGY [address] [facility] [address] [place] [address] Irene Silva APRN At high risk for breast cancer (Primary Dx); Atypical ductal hyperplasia of right breast; Atypical lobular hyperplasia (ALH) of left breast; Encounter for monitoring tamoxifen therapy 05/03/2025 11:00 AM EDT Office Visit [facility] HEMATOLOGY & ONCOLOGY [address] [facility] [address] [place] [phone] Irene Silva APRN Atypical ductal hyperplasia of [...] Info) Description 07/20/2025 3:00 PM EDT Telemedicine [address] [phone] Irene Silva APRN [address] [place] [address] [place] [address] 08/23/2025 11:00 AM EDT Office Visit [facility] HEMATOLOGY & ONCOLOGY [address] [place] [phone] Irene Silva APRN [address] [facility] [address] [place] [id number] Health Maintenance Due Date Last Done Comments Annual Gynecologic Pelvic and Breast Exam 1975 TDAP/TD VACCINES (1 - Tdap) 1994 PAP SMEAR 1996 ANNUAL PHYSICAL 09/20/2020 HEPATITIS C SCREENING 09/20/2020 COLOGUARD 2020 COLON CANCER SCREENING 5 YEAR SIGMOIDOSCOPY 2020 COLONOSCOPY [address] CANCER SCREENING [address] COLONOGRAPHY 2020 FECAL OCCULT BLOOD TEST 2020 FIT Testing (1 year) 2020 INFLUENZA VACCINE 05/28/2025 08/21/2022, , 08/17/2019 COVID-19 Vaccine ( season) 2025 01/26/2021, 12/29/2020 LIPID PANEL 07/22/2025 07/22/2024 Annual Breast MRI 09/22/2025 09/22/2024, , 10/03/2020 MAMMOGRAM TCS >= 20 03/01/2026 03/01/2025, 01/24/2024, 12/20/2022, Additional history exists MAMMOGRAM Discontinued 03/02/2025, 0502/2025, 01/24/2024, Additional history exists Pneumococcal Vaccine 0-49 Aged Out No longer eligible based on patient's age to complete this topic Procedures Procedure Name Priority Date/Time Associated Diagnosis Comments SCANNED - LABS 06/04/2025 MAMMO SCREENING DIGITAL TOMOSYNTHESIS BILATERAL W CAD [...] Recently Relevant to Health Maintenance Results * LABS SCANNED (06/04/2025) us Irene Silva APRN LAB BLOOD ORDERABLES Final Result * Mammo Screening Digital Tomosynthesis Bilateral With [...] of malignancy. Areas of postsurgical change bilaterally. Irene Silva FLIGHT SURGEON IM MAMMOGRAPHY ORDERABLES Final Result * MRI [...] images were also obtained. A CAD system ([email or web address]) was utilized for data analysis. COMPARISON: Prior [...] is no axillary or internal mammary adenopathy. us Irene Silva APRN IMG MRI ORDERABLES Final R esult * (ABNORMAL) Lipid Panel (07/22/2024 1:12 PM EDT) Total Cholesterol 243(H) 0 - 200 mg/dL 07/23/2024 12:04 AM T [facility] Triglycerides 237(H) 0 - 150 mg/dL 07/23/2024 12:04 AM T [facility] HDL Cholesterol 46 40 - 60 mg/dL 07/23/2024 12:04 AM T [facility] LDL Cholesterol 153(H) 0 - 100 mg/dL 07/23/2024 12:04 AM [facility] VLDL Cholesterol 44(H) 5 - 40 mg/dL 07/23/2024 12:04 AM T [facility] LDL/HDL Ratio 3.25 07/23/2024 12:04 AM T [facility] Blood Venipuncture / Unknown 07/22/2024 1:12 PM EDT 07/22/2024 1:12 PM EDT [facility] LABORATORY - 07/23/2024 12:04 AM EDT [...] Very High >189 mg/dL us Zena Renteria FLIGHT SURGEON LAB BLOOD ORDERABLES Fin al Result [facility]
[address] [place] [address], from Last 3 Months or Most Recently Relevant to Health Maintenance Insurance PPO Care Teams Audio Visual Tech Relationship Specialty Start Date End Date Ac Oliva MD [address] [place] [address] PCP - General Family Medicine 07/26/23
[2025-07-14 20:23] LABS: Cholesterol 210 mg/dl (140-200); HDL Cholesterol 43 mg/dl (40-60); Triglycerides 165 mg/dl (30-150)
== END 2025-07-14 23:59 | disposition home or self-care (01) ==
LOC: LAB.DROPOF 19:40
DX: N60.91 Unspecified benign mammary dysplasia of right breast (principal); N60.92 Unspecified benign mammary dysplasia of left breast; Z91.89 Other specified personal risk factors, not elsewhere classified
CPT/HCPCS: 80061